=== PATIENT | male | born 1960 | race Two or more races ===

== ENCOUNTER 2018-07-07 23:06 | Emergency (ER) | payer MEDICARE, OTHER ==
[~2018-07-07] VITALS: Ht 170.2 cm; Wt 88.5 kg
[~2018-07-07 23:06] MED LIST: ADCIRCA20 MG ORAL; CELLCEPT250 MG PO; COZAAR25 MG ORAL; COZAAR25 MG PO; NORVASC10 MG PO; PHOSPHA 250 NE250 M1 PO; PROGRAF1 MG ORAL; SIMVASTATIN20 MG PO; ZETIA10 MG PO
[2018-07-07] MEDS ORDERED: PRAVASTATIN SOD20 M1 ORAL (23:34)
[2018-07-07 23:40] VITALS: BP 132/85
--- NOTE | 2018-07-07 23:45 | NUR ---
ED Nurse Note: PT CAME FROM HOME C/O OF CHEST PAIN AND RIGHT ARM TINGLING AND SWELLING SINCE THIS MORNING PT DENIES TRUAMA TO AREA. NO SWELLING OBSERVED
[2018-07-08] LABS: BASOPHILS % (AUTO) 1.1 % (0.0-2.0); EOSINOPHILS % (AUTO) 8.1 % (0.0-3.0); HEMATOCRIT 40.4 % (42.0-52.0); HEMOGLOBIN 13.3 G/DL (14.2-18.0); LYMPHOCYTES % (AUTO) 33.1 % (20.0-45.0); MEAN CORPUSCULAR VOLUME 83 FL (80-99); MONOCYTES % (AUTO) 9.9 % (1.0-10.0); NEUTROPHILS % (AUTO) 47.8 % (45.0-75.0); PLATELET COUNT 112 K/UL (150-450); RED BLOOD COUNT 4.88 M/UL (4.70-6.10); WHITE BLOOD COUNT 5.3 K/UL (4.8-10.8)
[2018-07-08 00:05] LABS: ANION GAP 13 mmol/L (5-15); BLOOD UREA NITROGEN 16 mg/dL (7-18); CALCIUM 8.6 MG/DL (8.5-10.1); CARBON DIOXIDE 22 MMOL/L (21-32); CHLORIDE 104 MMOL/L (98-107); CREATININE 1.6 MG/DL (0.55-1.30); POTASSIUM 3.6 MMOL/L (3.5-5.1); SODIUM 139 MMOL/L (136-145)
[2018-07-08 00:21] LABS: ALANINE AMINOTRANSFERASE 42 U/L (12-78); ALBUMIN 3.6 G/DL (3.4-5.0); ALBUMIN/GLOBULIN RATIO 0.8 (1.0-2.7); ALKALINE PHOSPHATASE 230 U/L (46-116); ASPARTATE AMINO TRANSFERASE 25 U/L (15-37); BILIRUBIN,TOTAL 0.5 MG/DL (0.2-1.0); CKMB 0.8 NG/ML (0.0-3.6); CREATINE KINASE 163 U/L (26-308)
[2018-07-08 00:21] LABS: APPEARANCE,URINE CLEAR; BILIRUBIN, URINE NEGATIVE (NEGATIVE); COLOR,URINE PALE YELLOW; GLUCOSE, URINE (UA) NEGATIVE (NEGATIVE); KETONES,URINE NEGATIVE (NEGATIVE); LEUKOCYTE ESTERASE ,URINE 2+ (NEGATIVE); NITRITE,URINE NEGATIVE (NEGATIVE); PH,URINE 6.5 (4.5-8.0); PROTEIN,URINE 2+ (NEGATIVE); UROBILINOGEN,URINE NORMAL MG/DL (0.0-1.0)
[2018-07-08 01:12] VITALS: BP 122/77
[2018-07-08 01:36] VITALS: BP 119/75
--- NOTE | 2018-07-08 01:36 | NUR ---
ER DISCHARGE NOTE: Patient is cleared to be discharged per ERMD, pt is aox4, on room air, with stable vital signs. pt was given dc instructions, pt was able to verbalize understanding, pt id band and iv site removed without complications. pt is able to ambulate with steady gait. pt took all belongings.
--- NOTE | 2018-07-08 03:12 | Emergency Room Report ---
History of Present Illness General Chief Complaint: Chest Pain Source: Patient, Family Member Present Illness HPI 57-year-old male presents ED for evaluation. Patient on in by daughter. States he is feeling numbness and tingling in his right arm 1 day. Denies any slurred speech or facial droop. States that he felt some tingling sensation in his chest since the afternoon. Denies any symptoms at this time. States he was told that he may have some pinched nerve in his neck which caused tingling in his arm in the past. History of liver and kidney transplant. No other aggravating relieving factors. Denies any other associated symptoms Allergies: Uncoded Allergies: NO KNOWN ALLERGY (Allergy, Unknown, 01/13/12) Patient History Past Medical History: other - pulmonary hypertension Past Surgical History: none, other - liver and kidney transplant Pertinent Family History: none Social History: Denies: smoking, alcohol use, drug use Immunizations: UTD Reviewed Nursing Documentation: PMH: Agreed; PSxH: Agreed Nursing Documentation-PMH Past Medical History: No History, Except For Hx Cardiac Problems: Yes - KIDNEY AND LIVER TRANSPLANT Hx Hypertension: Yes - [id number] HTN Hx Cancer: No Hx Gastrointestinal Problems: No Hx Neurological Problems: No Review of Systems All Other Systems: negative except mentioned in HPI Physical Exam Vital Signs Date Time Temp Pulse Resp B/P (MAP) Pulse Ox O2 Delivery O2 Flow Rate FiO2 07/07/18 23:17 98.1 60 14 132/85 97 Room Air Sp02 EP Interpretation: reviewed, normal General Appearance: no apparent distress, alert, GCS 15, non-toxic Head: normocephalic, atraumatic Eyes: bilateral eye normal inspection, bilateral eye PERRL ENT: hearing grossly normal, normal pharynx, no angioedema, normal voice Neck: full range of motion, supple/symm/no masses Respiratory: chest non-tender, lungs clear, normal breath sounds, speaking full sentences Cardiovascular #1: regular rate, rhythm, no edema Cardiovascular #2: 2+ carotid (R), 2+ carotid (L), 2+ radial (R), 2+ radial (L) , 2+ dorsalis pedis (R), 2+ dorsalis pedis (L) Gastrointestinal: normal bowel sounds, non tender, soft, non-distended, no guarding, no rebound Rectal: deferred Genitourinary: normal inspection, no CVA tenderness Musculoskeletal: back normal, gait/station normal, normal range of motion, non- tender Neurologic: alert, oriented x3, responsive, legal advisor III-XII nml as tested, motor strength/tone normal, sensory intact, speech normal Psychiatric: judgement/insight normal, memory normal, mood/affect normal, no suicidal/homicidal ideation Reflexes: 3+ bicep (R), 3+ bicep (L), 3+ tricep (R), 3+ tricep (L), 3+ knee (R) , 3+ knee (L) Skin: normal color, no rash, warm/dry, well hydrated Lymphatic: no adenopathy Medical Decision Making Diagnostic Impression: Primary Impression: Nerve pain ER Course Hospital Course 57 yo M presents to ED c/o R arm tingling, chest tightness. Differential diagnoses include: CVA, ACS/VT, radiculopathy Clinical course Patient placed on stretcher. on personnel monitor. After initial history and physical I ordered labs, EKG, chest Xray, CT head, CT Cpsine labs reviewed- no leukocytosis, Hb/Hct stable, Cr 1.6, troponins negative CT Brain - unremarkable Chest x-ray- no acute process EKG - NSR, no acute ischemic changes interpreted by me CT C spine - DJD, no fx Discussed findings with patient and family. Patient has no focal neurological deficits. Cranial nerves II through XII intact. No suspicion of CVA. Troponins negative. EKG unremarkable. Symptomatology likely consistent with cervical radiculopathy Creatinine 1.6. Patient has history of kidney transplant. I discussed these findings with family and patient and they state that is his baseline creatinine for the patient. Safe for discharge or close outpatient follow-up. States that he has a PMD. We paged Dr Heath but patient stated he wants to go home and he will followup next week I. I feel this is a highly complex case requiring extensive working including EKG/Rhythm strip, Xray/CT/US, Blood/urine lab work, repeat exams while in ED, and administration of strong opiates/narcotics for pain control, admission to hospital or close patient follow up. Diagnosis - nerve pain Stable and discharged to home. Followup with PMD. Return to ED if symptoms recur or worsen Labs Test 07/07/18 23:30 07/07/18 23:57 White Blood Count 5.3 K/UL (4.8-10.8) Red Blood Count 4.88 M/UL (4.70-6.10) Hemoglobin 13.3 G/DL (14.2-18.0) Hematocrit 40.4 % (42.0-52.0) Mean Corpuscular Volume 83 FL (80-99) Mean Corpuscular Hemoglobin 27.3 PG (27.0-31.0) Mean Corpuscular Hemoglobin Concent 33.1 G/DL (32.0-36.0) Red Cell Distribution Width 13.0 % (11.6-14.8) Platelet Count 112 K/UL (150-450) Mean Platelet Volume 9.8 FL (6.5-10.1) Neutrophils (%) (Auto) 47.8 % (45.0-75.0) Lymphocytes (%) (Auto) 33.1 % (20.0-45.0) Monocytes (%) (Auto) 9.9 % (1.0-10.0) Eosinophils (%) (Auto) 8.1 % (0.0-3.0) Basophils (%) (Auto) 1.1 % (0.0-2.0) Sodium Level 139 MMOL/L (136-145) Potassium Level 3.6 MMOL/L (3.5-5.1) Chloride Level 104 MMOL/L (98-107) Carbon Dioxide Level 22 MMOL/L (21-32) Anion Gap 13 mmol/L (5-15) Blood Urea Nitrogen 16 mg/dL (7-18) Creatinine 1.6 MG/DL (0.55-1.30) Estimat Glomerular Filtration Rate 44.6 mL/min (>60) Glucose Level 116 MG/DL (74-106) Calcium Level 8.6 MG/DL (8.5-10.1) Total Bilirubin 0.5 MG/DL (0.2-1.0) Aspartate Amino Transf (AST/SGOT) 25 U/L (15-37) Alanine Aminotransferase (ALT/SGPT) 42 U/L (12-78) Alkaline Phosphatase 230 U/L (46-116) Total Creatine Kinase 163 U/L (26-308) Creatine Kinase MB 0.8 NG/ML (0.0-3.6) Creatine Kinase MB Relative Index 0.4 Troponin I 0.009 ng/mL (0.000-0.056) Total Protein 8.2 G/DL (6.4-8.2) Albumin 3.6 G/DL (3.4-5.0) Globulin 4.6 g/dL Albumin/Globulin Ratio 0.8 (1.0-2.7) Urine Color Pale yellow Urine Appearance Clear Urine pH 6.5 (4.5-8.0) Urine Specific [place] 1.010 (1.005-1.035) Urine Protein 2+ (NEGATIVE) Urine Glucose (UA) Negative (NEGATIVE) Urine Ketones Negative (NEGATIVE) Urine Blood 2+ (NEGATIVE) Urine Nitrite Negative (NEGATIVE) Urine Bilirubin Negative (NEGATIVE) Urine Urobilinogen Normal MG/DL (0.0-1.0) Urine Leukocyte Esterase 2+ (NEGATIVE) Urine RBC 0-2 /HPF (0 - 0) Urine WBC 2-4 /HPF (0 - 0) Urine Squamous Epithelial Cells Occasional /LPF Urine Bacteria Occasional /HPF (NONE) EKG Diagnostic Results Rate: normal Rhythm: NSR ST Segments: no acute changes ASA given to the pt in ED: No Rhythm Strip Diag. Results EP Interpretation: yes Rhythm: NSR, no PVC's, no ectopy Chest X-Ray Diagnostic Results Chest X-Ray Diagnostic Results : Chest X-Ray Ordered: Yes # of Views/Limited/Complete: 1 View Indication: Chest Pain EP Interpretation: Yes Interpretation: no consolidation, no effusion, no pneumothorax, no acute cardiopulmonary disease Impression: No acute disease Electronically Signed by: Electronically signed by Olivier Ortega MD CT/MRI/US Diagnostic Results CT/MRI/US Diagnostic Results #1: Imaging Test Ordered: CT head Impression no acute process CT/MRI/US Diagnostic Results #2: Imaging Test Ordered: CT C spine Impression DJD, no fx Last Vital Signs Date Time Temp Pulse Resp B/P (MAP) Pulse Ox O2 Delivery O2 Flow Rate FiO2 07/08/18 01:36 98.2 54 16 119/75 100 Room Air Status: improved Disposition: HOME, SELF-CARE Condition: Stable Referrals: NON PHYSICIAN (PCP) Sherrell Heath MD Patient Instructions: Cervical Radiculopathy, [id number] Olivier Ortega MD Jul 08, 2018 03:12
--- NOTE | 2018-07-09 12:42 | Cardiology Report ---
APPROVED REPORT EKG Measurement Heart [id number] [place] 140P10 [id number] Normal sinus rhythm Left anterior fascicular block Abnormal ECG
== END 2018-07-08 01:36 | disposition home or self-care (01) ==
LOC: EMR 23:55
DX: M79.2 Neuralgia and neuritis, unspecified (principal); R07.89 Other chest pain; R20.2 Paresthesia of skin; I27.20 Pulmonary hypertension, unspecified; Z94.4 Liver transplant status; Z94.0 Kidney transplant status
CPT/HCPCS: 36415; 70450; 71045; 72125; 80053; 81003; 82550; 82553; 84484; 85025; 93005; 99284

== ENCOUNTER 2018-08-08 18:12 | Inpatient (IN) | payer MEDICARE, OTHER ==
[~2018-08-08] VITALS: Ht 172.7 cm; Wt 88.5 kg
[~2018-08-08 18:12] MED LIST changes: +PRAVASTATIN SOD20 M1 ORAL
[2018-08-08 18:56] VITALS: BP 108/69
--- NOTE | 2018-08-08 18:57 | NUR ---
ED Nurse Note:pt. came from home with fever and nausea, hx of liver failure, blood and urine sent to labs, pt. was placed on conveyor monitor, VSS, IV fluids given , EKG done
--- NOTE | 2018-08-08 19:07 | NUR ---
HAND-OFF: Report given to Abeba.
[2018-08-08 19:12] VITALS: BP 123/69
--- NOTE | 2018-08-08 19:14 | NUR ---
ED Nurse Note: Patient resting comfortably with no complaints of pain. Patients daughter is at bedside. Belongings sheet completed. Patient's daughter agreed to take patient's wallet home.
[2018-08-08 19:15] LABS: HEMATOCRIT 41.3 % (42.0-52.0); HEMOGLOBIN 13.8 G/DL (14.2-18.0); MEAN CORPUSCULAR VOLUME 81 FL (80-99); PLATELET COUNT 90 K/UL (150-450); RED BLOOD COUNT 5.11 M/UL (4.70-6.10); RED CELL DISTRIBUTION WIDTH 12.4 % (11.6-14.8); WHITE BLOOD COUNT 9.7 K/UL (4.8-10.8)
[2018-08-08 19:16] LABS: APPEARANCE,URINE CLEAR; BILIRUBIN, URINE NEGATIVE (NEGATIVE); GLUCOSE, URINE (UA) NEGATIVE (NEGATIVE); KETONES,URINE NEGATIVE (NEGATIVE); LEUKOCYTE ESTERASE ,URINE 2+ (NEGATIVE); NITRITE,URINE NEGATIVE (NEGATIVE); PH,URINE 5 (4.5-8.0); PROTEIN,URINE 2+ (NEGATIVE); UROBILINOGEN,URINE NORMAL MG/DL (0.0-1.0)
[2018-08-08 19:18] LABS: ANION GAP 13 mmol/L (5-15); BLOOD UREA NITROGEN 21 mg/dL (7-18); CALCIUM 9.1 MG/DL (8.5-10.1); CARBON DIOXIDE 18 MMOL/L (21-32); CHLORIDE 99 MMOL/L (98-107); CREATININE 1.8 MG/DL (0.55-1.30); POTASSIUM 4.4 MMOL/L (3.5-5.1); SODIUM 130 MMOL/L (136-145)
[2018-08-08 19:20] LABS: COLOR,URINE YELLOW
[2018-08-08 19:31] LABS: ALANINE AMINOTRANSFERASE 66 U/L (12-78); ALBUMIN 3.7 G/DL (3.4-5.0); ALBUMIN/GLOBULIN RATIO 0.7 (1.0-2.7); ALKALINE PHOSPHATASE 237 U/L (46-116); ASPARTATE AMINO TRANSFERASE 45 U/L (15-37); BILIRUBIN,TOTAL 1.3 MG/DL (0.2-1.0); CKMB < 0.5 NG/ML (0.0-3.6); CREATINE KINASE 129 U/L (26-308)
[2018-08-08 19:33] LABS: BILIRUBIN,DIRECT 0.3 MG/DL (0.0-0.3)
[2018-08-08] MEDS ORDERED: cefTRIAXone 1 GM in NS 55 ML IVPB ONE (20:00)
--- NOTE | 2018-08-08 20:06 | Emergency Room Report ---
History of Present Illness General Chief Complaint: Fever Source: Patient, Family Member Present Illness HPI 57-year-old male presents ED for evaluation. Brought in by daughter complaining of fever and weakness. Symptoms started this morning. Febrile in triage. Denies cough or sore throat. Denies abdominal pain. Notes nausea and vomiting. States he has history of kidney transplant and liver transplant done many years ago at [facility]. Denies chest pain or shortness of breath. No other aggravating relieving factors. Denies any other associated symptoms Allergies: Uncoded Allergies: NO KNOWN ALLERGY (Allergy, Unknown, 01/13/12) Patient History Past Medical History: other - pulmonary hypertension Past Surgical History: other - kidney and liver transplant Pertinent Family History: none Social History: Denies: smoking, alcohol use, drug use Immunizations: UTD Reviewed Nursing Documentation: PMH: Agreed; PSxH: Agreed Nursing Documentation-PMH Past Medical History: No History, Except For Hx Cardiac Problems: Yes - KIDNEY AND LIVER TRANSPLANT Hx Hypertension: Yes - [id number] HTN Hx Cancer: No Hx Gastrointestinal Problems: No Hx Neurological Problems: No Review of Systems All Other Systems: negative except mentioned in HPI Physical Exam Vital Signs Date Time Temp Pulse Resp B/P (MAP) Pulse Ox O2 Delivery O2 Flow Rate FiO2 08/08/18 18:15 102.0 138 20 130/67 93 Room Air Sp02 EP Interpretation: reviewed, normal General Appearance: no apparent distress, alert, GCS 15, non-toxic Head: normocephalic, atraumatic Eyes: bilateral eye normal inspection, bilateral eye PERRL ENT: hearing grossly normal, normal pharynx, no angioedema, normal voice Neck: full range of motion, supple/symm/no masses Respiratory: chest non-tender, lungs clear, normal breath sounds, speaking full sentences Cardiovascular #1: no edema, tachycardia Cardiovascular #2: 2+ carotid (R), 2+ carotid (L), 2+ radial (R), 2+ radial (L) , 2+ dorsalis pedis (R), 2+ dorsalis pedis (L) Gastrointestinal: normal bowel sounds, non tender, soft, non-distended, no guarding, no rebound Rectal: deferred Genitourinary: normal inspection, no CVA tenderness Musculoskeletal: back normal, gait/station normal, normal range of motion, non- tender Neurologic: alert, oriented x3, responsive, motor strength/tone normal, sensory intact, speech normal Psychiatric: judgement/insight normal, memory normal, mood/affect normal, no suicidal/homicidal ideation Reflexes: 3+ bicep (R), 3+ bicep (L), 3+ tricep (R), 3+ tricep (L), 3+ knee (R) , 3+ knee (L) Skin: normal color, no rash, warm/dry, well hydrated Lymphatic: no adenopathy Medical Decision Making Diagnostic Impression: Primary Impression: Renal failure (ARF), acute on chronic Qualified Codes: N17.9 - Acute kidney failure, unspecified; N18.9 - Chronic kidney disease, unspecified Additional Impressions: UTI (urinary tract infection) Qualified Codes: N39.0 - Urinary tract infection, site not specified Sepsis Qualified Codes: A41.9 - Sepsis, unspecified organism ER Course Hospital Course 57-year-old male presenting to ED with generalized weakness, fever Differential diagnoses include: Pneumonia, UTI, sepsis, dehydration, TX/ unstable angina Clinical course Patient placed on stretcher. On personnel monitor with tachycardia. After initial history and physical, I ordered labs, IV fluids, EKG, chest x-ray, blood cultures, UA. motrin given Labs - no leukocytosis, Na 130, Cr 1.8, lactic elevated, UA + bacteria EKG - sinus tachycardia, no acute ischeic changes interpreted by me CXR - no acute process Discussed with patient and family. Baseline creatinine for patient is 1.6. There is concern for kidney rejection. Discussed case with transplant team at [facility]. They agreed that patient can be admitted here for antibiotics and IV hydration and serial lab work. If creatinine continues to rise they will accept patient for transfer Abx given. IVFs given. Case discussed with Dr Heath and they agreed to admit patient to their service for further care and support I feel this is a highly complex case requiring extensive working including EKG/ Rhythm strip, Xray/CT/US, Blood/urine lab work, repeat exams while in ED, and administration of strong opiates/narcotics for pain control, admission to hospital or close patient follow up. Diagnosis - UTI, sepsis, renal failure acute on chronic Patient admitted to floor in serious condition Labs Test 08/08/18 18:30 08/08/18 18:50 White Blood Count 9.7 K/UL (4.8-10.8) Red Blood Count 5.11 M/UL (4.70-6.10) Hemoglobin 13.8 G/DL (14.2-18.0) Hematocrit 41.3 % (42.0-52.0) Mean Corpuscular Volume 81 FL (80-99) Mean Corpuscular Hemoglobin 27.0 PG (27.0-31.0) Mean Corpuscular Hemoglobin Concent 33.4 G/DL (32.0-36.0) Red Cell Distribution Width 12.4 % (11.6-14.8) Platelet Count 90 K/UL (150-450) Mean Platelet Volume 8.8 FL (6.5-10.1) Neutrophils (%) (Auto) % (45.0-75.0) Lymphocytes (%) (Auto) % (20.0-45.0) Monocytes (%) (Auto) % (1.0-10.0) Eosinophils (%) (Auto) % (0.0-3.0) Basophils (%) (Auto) % (0.0-2.0) Sodium Level 130 MMOL/L (136-145) Potassium Level 4.4 MMOL/L (3.5-5.1) Chloride Level 99 MMOL/L (98-107) Carbon Dioxide Level 18 MMOL/L (21-32) Anion Gap 13 mmol/L (5-15) Blood Urea Nitrogen 21 mg/dL (7-18) Creatinine 1.8 MG/DL (0.55-1.30) Estimat Glomerular Filtration Rate 38.9 mL/min (>60) Glucose Level 143 MG/DL (74-106) Lactic Acid Level 2.40 mmol/L (0.4-2.0) Calcium Level 9.1 MG/DL (8.5-10.1) Total Bilirubin 1.3 MG/DL (0.2-1.0) Direct Bilirubin 0.3 MG/DL (0.0-0.3) Aspartate Amino Transf (AST/SGOT) 45 U/L (15-37) Alanine Aminotransferase (ALT/SGPT) 66 U/L (12-78) Alkaline Phosphatase 237 U/L (46-116) Total Creatine Kinase 129 U/L (26-308) Creatine Kinase MB < 0.5 NG/ML (0.0-3.6) Creatine Kinase MB Relative Index 0.3 Troponin I 0.000 ng/mL (0.000-0.056) Total Protein 8.7 G/DL (6.4-8.2) Albumin 3.7 G/DL (3.4-5.0) Globulin 5.0 g/dL Albumin/Globulin Ratio 0.7 (1.0-2.7) Urine Color Yellow Urine Appearance Clear Urine pH 5 (4.5-8.0) Urine Specific [place] 1.010 (1.005-1.035) Urine Protein 2+ (NEGATIVE) Urine Glucose (UA) Negative (NEGATIVE) Urine Ketones Negative (NEGATIVE) Urine Blood 3+ (NEGATIVE) Urine Nitrite Negative (NEGATIVE) Urine Bilirubin Negative (NEGATIVE) Urine Urobilinogen Normal MG/DL (0.0-1.0) Urine Leukocyte Esterase 2+ (NEGATIVE) Urine RBC 5-10 /HPF (0 - 0) Urine WBC 5-10 /HPF (0 - 0) Urine Squamous Epithelial Cells Few /LPF (NONE/OCC) Urine Amorphous Sediment Few /LPF (NONE) Urine Bacteria Moderate /HPF (NONE) EKG Diagnostic Results Rate: tachycardiac Rhythm: NSR ST Segments: no acute changes ASA given to the pt in ED: No Rhythm Strip Diag. Results EP Interpretation: yes Rhythm: NSR, no PVC's, no ectopy Chest X-Ray Diagnostic Results Chest X-Ray Diagnostic Results : Chest X-Ray Ordered: Yes # of Views/Limited/Complete: 1 View Indication: Other EP Interpretation: Yes Interpretation: no consolidation, no effusion, no pneumothorax, no acute cardiopulmonary disease Impression: No acute disease Electronically Signed by: Electronically signed by Olivier Ortega MD Last Vital Signs Date Time Temp Pulse Resp B/P (MAP) Pulse Ox O2 Delivery O2 Flow Rate FiO2 08/08/18 19:29 103.0 08/08/18 19:12 100 18 123/69 96 Room Air Status: improved Disposition: ADMITTED INPATIENT Condition: Serious Referrals: Sherrell Heath MD (PCP) Olivier Ortega MD August 08, 2018 20:06
[2018-08-08 20:24] VITALS: BP 111/66
--- NOTE | 2018-08-08 21:08 | NUR ---
ED Nurse Note: Patient cleared for transport to medr floor. Lexa accompanied by Govind. Report given to [address]. Lexa in stable condition, fever broken. Family will meet patient upstairs.
--- NOTE | 2018-08-08 21:08 | NUR ---
NURSE NOTES: Received pt from E[place]D. via [place], pt ambulated from gurney to bed without difficulty, gait steady. Pt is AOX4, denies pain, no distress noted. IV R hand patent and intact. NS IV fluid infusing from E.D. Will admit pt to floor. Family at bedside. Will continue to monitor.
[2018-08-08 21:10] VITALS: BP 117/70
--- NOTE | 2018-08-08 21:30 | NUR ---
NURSE NOTES: Dr Heath called admission orders given, will carry out orders.
--- NOTE | 2018-08-08 22:00 | NUR ---
NURSE NOTES: Instructed pt to have somebody bring his own medication (Adcirca) from home. Pharmacy doesn't carry this medication. Pt verbalize understanding.
--- NOTE | 2018-08-08 22:15 | NUR ---
NURSE NOTES: Dr. Heath came to see pt. Informed MD pt's platelets 90 and latest temp 99.0. MD did not want to discontinue heparin.
[2018-08-08] MEDS: Losartan 25mg tab ORAL SCH (23:31)
[2018-08-08] MEDS: Acetaminophen 500mg (ES) tab ORAL PRN (23:45)
[2018-08-09] VITALS: BP 129/58
[2018-08-09 04:00] VITALS: BP 123/61
[2018-08-09] MEDS ORDERED: Piperacillin/Tazobactam 3.375 GM in NS 110 ML IVPB SCH (06:00)
--- NOTE | 2018-08-09 06:45 | History and Physical Report ---
DATE OF ADMISSION: 08/08/2018 REASON FOR ADMISSION: This is one of several admissions to [facility] of this 57-year-old patient because of sepsis. HISTORY OF PRESENT ILLNESS: The patient is a resident of [place] and had been in stable condition for the last several years. He is known to have several chronic medical syndrome that will be detailed in the following. The patient has been stable on his current medication. One day prior to the present admission, he developed fever, tachycardia, and upper extremity tremor and severe weakness. He was brought by his daughter to [facility], where he was found to have fever, tachycardia, normal WBC, and pyuria, and the patient was admitted. PAST MEDICAL HISTORY: More than 10 years ago, the patient underwent liver and skin transplant at [facility], so surgery took place after the patient was admitted to [facility] for upper gastrointestinal bleed and thrombocytopenia. Over the last 10 years, his surgery was very successful. His immunosuppression medications are well tolerated. No side effects. He regained complete recovery of his energy and his function. He has been followed at [facility] by a neuro specialist and plastic boat buffer and followed by ar as well. ALLERGIES: No known drug allergies. MEDICATIONS: The patient is on ezetimibe 10 mg daily, pravastatin 40 mg daily, pantoprazole 40 mg daily, amlodipine 10 mg daily, and mycophenolate 500 mg b.i.d. He is on phosphorus 500 mg b.i.d. Tacrolimus or Prograf 1 mg in a.m. He is on tadalafil 20 mg t.i.d. for pulmonary hypertension. He taking tacrolimus 0.5 mg q.12 h. In addition, the patient is on losartan 25 mg at bedtime. Sodium chloride 1 gram, a bit. FAMILY HISTORY: Both parents are alive and in good health. He has one sister in good health. He has one daughter, who is in the last year of medical school at [employer]. SOCIAL HISTORY: He is . He is going tomorrow, lived in [place] for more than 20 years, prior to the appearance of this . HABITS: The patient does not smoke, drink, or use illicit drugs. REVIEW OF SYSTEMS: CARDIOVASCULAR: The patient denied any chest pain, shortness of breath, palpitations, or dizziness. PULMONARY: The patient denied any cough, wheezing, or expectoration. GASTROINTESTINAL: His appetite is moderate. His weight is stable. He has no dysphagia or dyspepsia. No bowel movement disorder. GENITOURINARY: The patient denied any dysuria, frequency, or incontinence. Nocturia is 1 to 2. The patient denies dysuria in the last 24 hours. CENTRAL NERVOUS SYSTEM: His sleep is of good quality. He has no numbness, tingling, or seizure disorder and he has no headache. PHYSICAL EXAMINATION: VITAL SIGNS: Blood pressure is 121/71, his pulse is 91, respirations are 22, and temperature is 98.6 degrees, it was 103 degrees two hours ago. HEENT: Eyes were normal. Pupils were round, equal, and reactive to light. Sclerae were white. Conjunctivae were pink. Extraocular movements were normal. Temporal arteries were palpable bilaterally. There was no bilateral temporal wasting. Visual perez to confrontation were normal. Neglect sign was negative. ENT, mucous membranes were not dehydrated. Auditory canals were clear and tympanic membranes could not be visualized. Nasal cavity was not congested. Nasal septum was intact. Soft palate was free of ulcerations. Pharynx was clear from exudate or tonsillar hypertrophy. Uvula jing to phonation. Tongue was moist, midline, and normally papillated. NECK: Supple. There was no goiter. No mass. No lymphadenopathy. There was no JVD. No bruits. Carotid upstroke was 2+. LUNGS: Clear. HEART: PMI was in the fourth left intercostal space in midclavicular line. There was normal S1 and normal S2. There was no murmur. No arrhythmia. No S3. No S4. No pericardial rub. ABDOMEN: Soft and nontender without organomegaly. There were no masses palpable. Normal bowel sounds without bruits. There was no guarding. No rebound tenderness. No ascites. No hernia. No CVA tenderness. Liver span was 8 cm, smooth, and nontender. There was some left CVA tenderness and slightly dull to palpation. NEUROLOGICAL: Reflexes in biceps, triceps, and brachioradialis were symmetric and equal. Patellar retinaculum was symmetric and equal. Plantars were in flexion. Cranial nerves from II through XII were symmetric and equal. Cerebellar function, there was no tremor. No nystagmus. No extrapyramidal rigidity. Sensory exam to pinprick, cotton touch, and position are grossly normal. Motor strength was 5/5 against resistance in upper and lower extremities in proximal and distal muscles. LABORATORY DATA: Hemoglobin 7.8 and hematocrit 31.3 with MCV of 61, WBC of 9.7, and platelets 190,000. His BUN and creatinine are 21 and 1.0 respectively. His sodium is 130, potassium 4.4, chloride 99, and CO2 is 18, and calcium is 9.1. Total bili is 1.3. IMPRESSION: The patient has sepsis associated with cystitis. However, creatinine has increased from 1.6 to 1.8 without significant increase in BUN, which led to suspicion that the patient . [facility] was contacted and they suggested to treat the patient for the next 24 hours and to communicate again once his advanced renal function are available. Repeat laboratory tests will be done in the a.m. Nephrology sap plant maintenance consultant was called to assist in the management of this case. Sherrell Heath M.D. DR: KIMBERLEE JOB#: [id number] CC:
--- NOTE | 2018-08-09 06:50 | NUR ---
NURSE NOTES: Paged Dr. Heath regarding Heparin 5,000 units sub cut q 12 hours, Platelet count 90. Pharmacy wants parameters for heparin due to platelet is low. Awaiting for call back.
[2018-08-09 06:54] LABS: HEMATOCRIT 35.5 % (42.0-52.0); HEMOGLOBIN 11.8 G/DL (14.2-18.0); MEAN CORPUSCULAR VOLUME 83 FL (80-99); PLATELET COUNT 72 K/UL (150-450); RED CELL DISTRIBUTION WIDTH 12.8 % (11.6-14.8); WHITE BLOOD COUNT 9.8 K/UL (4.8-10.8)
--- NOTE | 2018-08-09 07:00 | NUR ---
NURSE NOTES: Dr. Heath called back and discontinue heparin medication.
--- NOTE | 2018-08-09 07:30 | NUR ---
NURSE NOTES: Patient is in bed asleep but arousable to verbal stimuli. Patient is stable. No facial grimacing or moaning noted. All safety measures provided. Patient is in bed in locked and lowest position with call light within reach. Will continue to monitor.
--- NOTE | 2018-08-09 07:30 | NUR ---
HAND-OFF: Report given to DOMINGO Mccarthy. Pt in stable condition.
[2018-08-09 07:59] LABS: ALANINE AMINOTRANSFERASE 64 U/L (12-78); ALBUMIN 2.8 G/DL (3.4-5.0); ALKALINE PHOSPHATASE 177 U/L (46-116); ANION GAP 13 mmol/L (5-15); ASPARTATE AMINO TRANSFERASE 38 U/L (15-37); BILIRUBIN,DIRECT 0.2 MG/DL (0.0-0.3); BILIRUBIN,TOTAL 0.8 MG/DL (0.2-1.0); BLOOD UREA NITROGEN 22 mg/dL (7-18); CALCIUM 8.1 MG/DL (8.5-10.1); CARBON DIOXIDE 18 MMOL/L (21-32); CHLORIDE 107 MMOL/L (98-107); CREATININE 1.8 MG/DL (0.55-1.30); LACTATE DEHYDROGENASE 120 U/L (81-234); POTASSIUM 4.4 MMOL/L (3.5-5.1); SODIUM 138 MMOL/L (136-145)
[2018-08-09 08:00] VITALS: BP 126/65
[2018-08-09] MEDS ORDERED: Heparin 5000 units/ml inj SUBQ SCH (09:00)
--- NOTE | 2018-08-09 09:00 | NUR ---
NURSE NOTES: Received new orders from Dr. Heath regarding blood specimen results. Orders noted and carried out.
[2018-08-09] MEDS: Pantoprazole Inj IVP SCH (09:14)
[2018-08-09] MEDS: Mycophenolate 250mg cap ORAL SCH ×2 (09:14→18:14)
[2018-08-09] MEDS: Phospha 250 Neutral tab ORAL SCH ×2 (09:14→18:14)
--- NOTE | 2018-08-09 09:57 | Diagnostic Imaging Report ---
Indication:Abdominal pain Technique: Grayscale and duplex Doppler imaging of the abdomen performed. Comparison: None Findings: The [place] kidneys are not seen. 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 The transplanted kidney is unremarkable as visualized. There is no hydronephrosis. The bladder is unremarkable. Low resistance waveform demonstrated. Resistive indices range from 0.75-0.79. There is a small cyst in the kidney. There is no ascites. The liver is unremarkable. CBD is 6 mm. Gallbladder is not seen. The pancreas and aorta are poorly seen. The main portal vein is patent by Doppler examination. Spleen measures about 12.5 cm x 10.6 cm. IMPRESSION: Transplant kidney in the left iliac fossa. Small cyst noted. Splenomegaly. Pancreas and aorta not seen due to bowel gas. Status post cholecystectomy
--- NOTE | 2018-08-09 10:52 | Diagnostic Imaging Report ---
Indication: Dyspnea Comparison: 07/07/2018 A single view chest radiograph was obtained. Findings: Cardiomediastinal appearance is within normal limits for age. The lungs are clear. Pulmonary vascularity is appropriate. The diaphragmatic contour is smooth and costophrenic angles are sharp. No pleural effusions are identified. The bones are unremarkable. Impression: No acute findings
--- NOTE | 2018-08-09 11:17 | NUR ---
CASE MANAGEMENT:REVIEW 57 YR OLD MALE FROM HOME TO ER CC: FEVER. VOMITING IN ER SI: SEPSIS. UTI. AC/CHR RENAL 102.1 138 20 130/67 93% ON RA PLT-90 NA-130 BUN+21 CR+1.8 IS: 1L NS BOLUS IV ROCEPHIN IBUPROFEN PO CHEST XRAY BLOOD CX URINE CX : TO MED/SURG 3 EAST DCP: FROM HOME
[2018-08-09 12:00] VITALS: BP 130/74
[2018-08-09] MEDS: Meropenem 1 GM in NS 55 ML IVPB SCH ×2 (12:12→21:16)
[2018-08-09 12:34] LABS: APPEARANCE,URINE CLEAR; BILIRUBIN, URINE NEGATIVE (NEGATIVE); COLOR,URINE PALE YELLOW; GLUCOSE, URINE (UA) NEGATIVE (NEGATIVE); KETONES,URINE NEGATIVE (NEGATIVE); LEUKOCYTE ESTERASE ,URINE 1+ (NEGATIVE); NITRITE,URINE NEGATIVE (NEGATIVE); PH,URINE 6 (4.5-8.0); PROTEIN,URINE NEGATIVE (NEGATIVE); UROBILINOGEN,URINE NORMAL MG/DL (0.0-1.0)
[2018-08-09] MEDS ORDERED: Meropenem 1 GM in NS 55 ML IVPB SCH (14:00)
--- NOTE | 2018-08-09 14:26 | Consultation ---
History of Present Illness General Chief Complaint: Fever Present Illness Allergies: Coded Allergies: No Known Allergies (Unverified , 08/09/18) Medication History Scheduled Amlodipine Besylate (Norvasc), 10 MG PO DAILY, (Reported) Ezetimibe (Zetia*), 10 MG PO QHS, (Reported) Losartan Potassium* (Cozaar*), 25 MG ORAL BEDTIME, (Reported) Mycophenolate Mofetil (Cellcept), 500 MG PO BID, (Reported) Phosphorus (Phospha 250 Neutral Tablet), 500 MG PO BID, (Reported) Pravastatin Sod* (Pravastatin Sod*), 20 MG ORAL BEDTIME, (Reported) Simvastatin (Zocor), 40 MG PO QHS, (Reported) Tacrolimus (Prograf), 1.5 MG ORAL BID, (Reported) Tadalafil (Adcirca), 40 MG ORAL DAILY, (Reported) Patient History Healthcare decision maker Resuscitation status Full Code Advanced Directive on File No Physical Exam Last 24 Hour Vital Signs Date Time Temp Pulse Resp B/P (MAP) Pulse Ox O2 Delivery O2 Flow Rate FiO2 08/09/18 12:00 98.0 68 20 130/74 (92) 97 08/09/18 09:14 70 126/65 08/09/18 09:00 Room Air 08/09/18 08:00 98.0 70 20 126/65 (85) 98 08/09/18 04:00 98.0 71 18 123/61 (81) 97 08/09/18 00:00 99.2 82 18 129/58 (81) 97 08/08/18 23:31 117/70 08/08/18 21:24 Room Air 08/08/18 21:10 99.0 91 18 117/70 (86) 98 08/08/18 21:10 98.6 91 22 121/71 99 Room Air 08/08/18 20:24 98.6 91 26 111/66 99 Room Air 08/08/18 19:29 103.0 08/08/18 19:12 103.0 100 18 123/69 96 Room Air 08/08/18 18:56 102.0 107 20 108/69 93 Room Air 08/08/18 18:51 107 20 Room Air 08/08/18 18:15 102.0 138 20 130/67 93 Room Air Intake and Output 08/08/18 08/09/18 18:59 06:59 Intake Total 827.5 ml Output Total 400 ml Balance 427.5 ml Intake Oral 100 ml IV Total 727.5 ml Output Urine Total 400 ml # Voids 1 Laboratory Tests Test 08/08/18 18:30 08/08/18 18:50 08/08/18 20:30 08/09/18 05:50 White Blood Count 9.7 K/UL (4.8-10.8) 9.8 K/UL (4.8-10.8) Red Blood Count 5.11 M/UL (4.70-6.10) 4.30 M/UL (4.70-6.10) L Hemoglobin 13.8 G/DL (14.2-18.0) L 11.8 G/DL (14.2-18.0) L Hematocrit 41.3 % (42.0-52.0) L 35.5 % (42.0-52.0) L Mean Corpuscular Volume 81 FL (80-99) 83 FL (80-99) Mean Corpuscular Hemoglobin 27.0 PG (27.0-31.0) 27.4 PG (27.0-31.0) Mean Corpuscular Hemoglobin Concent 33.4 G/DL (32.0-36.0) 33.2 G/DL (32.0-36.0) Red Cell Distribution Width 12.4 % (11.6-14.8) 12.8 % (11.6-14.8) Platelet Count 90 K/UL (150-450) L 72 K/UL (150-450) L Mean Platelet Volume 8.8 FL (6.5-10.1) 9.5 FL (6.5-10.1) Neutrophils (%) (Auto) % (45.0-75.0) % (45.0-75.0) Lymphocytes (%) (Auto) % (20.0-45.0) % (20.0-45.0) Monocytes (%) (Auto) % (1.0-10.0) % (1.0-10.0) Eosinophils (%) (Auto) % (0.0-3.0) % (0.0-3.0) Basophils (%) (Auto) % (0.0-2.0) % (0.0-2.0) Differential Total Cells Counted 100 100 Neutrophils % (Manual) 86 % (45-75) H 68 % (45-75) Lymphocytes % (Manual) 9 % (20-45) L 21 % (20-45) Monocytes % (Manual) 1 % (1-10) 9 % (1-10) Eosinophils % (Manual) 0 % (0-3) 0 % (0-3) Basophils % (Manual) 0 % (0-2) 0 % (0-2) Band Neutrophils 4 % (0-8) 2 % (0-8) Platelet Estimate Decreased L Decreased L Platelet Morphology Normal Normal Red Blood Cell Morphology Normal Normal Sodium Level 130 MMOL/L (136-145) L 138 MMOL/L (136-145) Potassium Level 4.4 MMOL/L (3.5-5.1) 4.4 MMOL/L (3.5-5.1) Chloride Level 99 MMOL/L (98-107) 107 MMOL/L (98-107) Carbon Dioxide Level 18 MMOL/L (21-32) L 18 MMOL/L (21-32) L Anion Gap 13 mmol/L (5-15) 13 mmol/L (5-15) Blood Urea Nitrogen 21 mg/dL (7-18) H 22 mg/dL (7-18) H Creatinine 1.8 MG/DL (0.55-1.30) H 1.8 MG/DL (0.55-1.30) H Estimat Glomerular Filtration Rate 38.9 mL/min (>60) 38.9 mL/min (>60) Glucose Level 143 MG/DL (74-106) H 102 MG/DL (74-106) Lactic Acid Level 2.40 mmol/L (0.4-2.0) H 1.00 mmol/L (0.66-2.22) Calcium Level 9.1 MG/DL (8.5-10.1) 8.1 MG/DL (8.5-10.1) L Total Bilirubin 1.3 MG/DL (0.2-1.0) H 0.8 MG/DL (0.2-1.0) Direct Bilirubin 0.3 MG/DL (0.0-0.3) 0.2 MG/DL (0.0-0.3) Aspartate Amino Transf (AST/SGOT) 45 U/L (15-37) H 38 U/L (15-37) H Alanine Aminotransferase (ALT/SGPT) 66 U/L (12-78) 64 U/L (12-78) Alkaline Phosphatase 237 U/L (46-116) H 177 U/L (46-116) H Total Creatine Kinase 129 U/L (26-308) Creatine Kinase MB < 0.5 NG/ML (0.0-3.6) Creatine Kinase MB Relative Index 0.3 Troponin I 0.000 ng/mL (0.000-0.056) Total Protein 8.7 G/DL (6.4-8.2) H 7.0 G/DL (6.4-8.2) Albumin 3.7 G/DL (3.4-5.0) 2.8 G/DL (3.4-5.0) L Globulin 5.0 g/dL Albumin/Globulin Ratio 0.7 (1.0-2.7) L Urine Color Yellow Urine Appearance Clear Urine pH 5 (4.5-8.0) Urine Specific [place] 1.010 (1.005-1.035) Urine Protein 2+ (NEGATIVE) H Urine Glucose (UA) Negative (NEGATIVE) Urine Ketones Negative (NEGATIVE) Urine Blood 3+ (NEGATIVE) H Urine Nitrite Negative (NEGATIVE) Urine Bilirubin Negative (NEGATIVE) Urine Urobilinogen Normal MG/DL (0.0-1.0) Urine Leukocyte Esterase 2+ (NEGATIVE) H Urine RBC 5-10 /HPF (0 - 0) H Urine WBC 5-10 /HPF (0 - 0) H Urine Squamous Epithelial Cells Few /LPF (NONE/OCC) Urine Amorphous Sediment Few /LPF (NONE) H Urine Bacteria Moderate /HPF (NONE) H Erythrocyte Sedimentation Rate 43 MM/HR (0-20) H Ammonia 25 umol/L (11-32) Lactate Dehydrogenase 120 U/L (81-234) C-Reactive Protein, Quantitative 13.8 mg/dL (0.00-0.90) H Thyroid Stimulating Hormone (TSH) 1.382 uiU/mL (0.358-3.740) Free Thyroxine 1.11 NG/DL (0.76-1.46) Test 08/09/18 12:00 Urine Color Pale yellow Urine Appearance Clear Urine pH 6 (4.5-8.0) Urine Specific [place] 1.010 (1.005-1.035) Urine Protein Negative (NEGATIVE) Urine Glucose (UA) Negative (NEGATIVE) Urine Ketones Negative (NEGATIVE) Urine Blood 1+ (NEGATIVE) H Urine Nitrite Negative (NEGATIVE) Urine Bilirubin Negative (NEGATIVE) Urine Urobilinogen Normal MG/DL (0.0-1.0) Urine Leukocyte Esterase 1+ (NEGATIVE) H Urine RBC 0-2 /HPF (0 - 0) H Urine WBC 0-2 /HPF (0 - 0) Urine Squamous Epithelial Cells None /LPF (NONE/OCC) Urine Bacteria None /HPF (NONE) Microbiology Date/Time Source Procedure Growth Status 08/08/18 18:40 Blood Blood Culture - Preliminary Gram Negative [place] Resulted 08/08/18 18:30 Blood Blood Culture - Preliminary Gram Negative [place] Resulted 08/08/18 18:50 Urine,Clean Catch Urine Culture - Preliminary NO GROWTH Resulted Height (Feet): 5 Height (Inches): 8.00 Weight (Pounds): 195 Medications Current Medications Medications (Trade) Dose Ordered Sig/Bria Route PRN Reason Start Time Stop Time Status Last Admin Dose Admin Acetaminophen (Tylenol) 500 mg Q6H PRN ORAL Mild Pain/Temp > 100.5 08/08/18 23:30 09/07/18 23:29 08/08/18 23:45 Amlodipine Besylate (Norvasc) 10 mg DAILY ORAL 08/09/18 09:00 09/08/18 08:59 08/09/18 09:14 EZETIMIBE (Zetia) 10 mg BEDTIME ORAL 08/09/18 21:00 09/08/18 20:59 Losartan Potassium (Cozaar) 25 mg QHS ORAL 08/08/18 23:30 09/07/18 23:29 08/08/18 23:31 Meropenem 1 gm/ Sodium Chloride 55 ml @ 110 mls/hr Q8HR IVPB 08/09/18 12:00 08/10/18 15:00 08/09/18 12:12 Mycophenolate Mofetil (Cellcept) 500 mg TWICE A DAY ORAL 08/09/18 09:00 09/08/18 08:59 08/09/18 09:14 Non-Formulary Medication (Non-Formulary Med) 1 ea DAILY ORAL 08/09/18 09:00 09/08/18 08:59 UNV Ondansetron HCl (Zofran) 4 mg Q4H PRN IVP Nausea & Vomiting 08/08/18 22:45 09/07/18 22:44 Pantoprazole (Protonix) 40 mg DAILY IVP 08/09/18 09:00 09/08/18 08:59 08/09/18 09:14 Phosphorus (Phospha 250 Neutral) 500 mg BID ORAL 08/09/18 09:00 09/08/18 08:59 08/09/18 09:14 Pravastatin Sodium (Pravachol) 40 mg BEDTIME ORAL 08/09/18 21:00 09/08/18 20:59 Sodium Chloride 1,000 ml @ 100 mls/hr Q10H IV 08/08/18 22:45 09/07/18 22:44 08/09/18 09:13 Tacrolimus (Prograf) 0.5 mg Q12HR ORAL 08/09/18 09:00 09/08/18 08:59 08/09/18 09:13 Tacrolimus (Prograf) 1 mg EVERY 12 HOURS ORAL 08/09/18 09:00 09/08/18 08:59 08/09/18 09:13 Assessment/Plan Assessment/Plan: Hematology Consultation DOS: 08/09/18 MIKI MD: Sherrell Heath [facility]: Anemia and low platelets Source: Patient, Family Member HPI 57-year-old male presents ED for evaluation. Brought in by daughter complaining of fever and weakness. Symptoms started this morning. Febrile in triage. Denies cough or sore throat. Denies abdominal pain. Notes nausea and vomiting. States he has history of kidney transplant and liver transplant done many years ago at [facility]. Denies chest pain or shortness of breath. No other aggravating relieving factors. Denies any other associated symptoms Allergies: NO KNOWN ALLERGY (Allergy, Unknown, 01/13/12) Past Medical History: other - pulmonary hypertension Past Surgical History: other - kidney and liver transplant Pertinent Family History: none Social History: Denies: smoking, alcohol use, drug use Immunizations: UTD Reviewed Nursing Documentation: PMH: Agreed; PSxH: Agreed Past Medical History: No History, Except For Hx Cardiac Problems: Yes - KIDNEY AND LIVER TRANSPLANT Hx Hypertension: Yes - [id number] HTN Hx Cancer: No Hx Gastrointestinal Problems: No Hx Neurological Problems: No Review of Systems: negative except mentioned in HPI PE Vital Signs Date Time Temp Pulse Resp B/P (MAP) Pulse Ox O2 Delivery O2 Flow Rate FiO2 08/08/18 18:15 102.0 138 20 130/67 93 Room Air Sp02 EP Interpretation: reviewed, normal General Appearance: no apparent distress Head: normocephalic, atraumatic Eyes: bilateral eye normal inspection ENT: hearing grossly normal, normal pharynx Neck: full range of motion, supple/symm/no masses Respiratory: chest non-tender, lungs clear, normal breath sounds Cardiovascular: no edema, tachycardia, 2+ carotid (R), 2+ carotid (L) Gastrointestinal: normal bowel sounds, non tender, soft, non-distended, no guarding, no rebound Genitourinary: normal inspection, no CVA t Musculoskeletal: back normal, gait/station normal, nd Neurologic: alert, oriented x3, responsive Psychiatric: judgement/insight normal, memory june Reflexes: noted allthroughout Skin: normal color, no rash, warm/dry Assessment and Recs: # Thrombocytopenia - potential causes multifactorial, due to cirrhosis and splenomegaly as well, meds reviewed, on antisuppressants, has been admitted before 2012 --> Hep panel and HIV ordered --> US abd to evaluate for cirrhosis and hsm ordered --> Peripheral smear ordered to evaluate for blasts /schistocytes --> abx and other meds have been reviewed --> ok for ppx if plt >50k w/ either heparin or lovenox --> Transfuse if Plt < 20k and fever, or if Plt < 10k without fever # Anemia of chronic disease (or of iron deficiency) due to underlying chronic medical issues, multifactorial --> Anemia workup has been ordered, rule out gi bleed --> No evidence of hemolysis is noted, peripheral smear has been reviewed. --> Hgb goal >7. Transfuse prn. --> Epogen or iron at this time is not particularly indicated --> Medications have been reviewed --> evaluate with Gi team prn --> transfuse if hgb is < 7 (will trend CBC daily) --> low threshold for gi evaluation in case has occult + # History of liver cirrhosis. chronic --> History of renal and liver transplant. --> History of immunosuppressive medications. --> History of splenomegaly. # Hypertension. --> sbp goal is <140 --> as per cards # History of pulmonary hypertension. # Renal failure (ARF), acute on chronic # UTI (urinary tract infection) with sepsis --> s/p abx The timing of this note does not necessarily reflect the time of the patient was seen. Greatly appreciate consultation! Edson Olvera MD August 09, 2018 14:26
[2018-08-09 16:00] VITALS: BP 123/68
[2018-08-09 16:28] LABS: FERRITIN 256 NG/ML (8-388)
[2018-08-09 16:43] LABS: % IRON SATURATION 10 % (15-50); IRON 26 ug/dL (50-175); TOTAL IRON BINDING CAPACITY 250 ug/dL (250-450)
[2018-08-09] MEDS ORDERED: Tubing IV Secondary IV ONE (16:52)
--- NOTE | 2018-08-09 17:43 | Cardiology Report ---
APPROVED REPORT EKG Measurement Heart [id number] [id number] Sinus tachycardia Right bundle branch block Left anterior fascicular block Bifascicular block Abnormal ECG
--- NOTE | 2018-08-09 19:30 | NUR ---
NURSE NOTES: Received report & pt from DOMINGO Mccarthy. Pt lying in bed, a&ox4, Amharic speaking, in room air, family members at bedside. No s/s of acute distress & no c/o pain at this time. Skin intact. IV site intact with IVF running as ordered. Per daughter, family member will bring Adcirca home med tomorrow 08/10/18. Bed in lowest position, call light within reach. Will continue to monitor.
--- NOTE | 2018-08-09 19:30 | NUR ---
HAND-OFF: Report given to Sudha LANE. Patient is stable.
[2018-08-09 20:00] VITALS: BP 134/75
[2018-08-09] MEDS: Losartan 25mg tab ORAL SCH (20:33)
[2018-08-10] VITALS: BP 117/73
[2018-08-10 04:00] VITALS: BP 125/68
[2018-08-10] MEDS: Meropenem 1 GM in NS 55 ML IVPB SCH ×3 (05:17→21:53)
[2018-08-10] MEDS: Acetaminophen 500mg (ES) tab ORAL PRN (07:24)
--- NOTE | 2018-08-10 07:30 | NUR ---
NURSE NOTES: Patient is sitting up in chair awake and able to verbalize needs. Patient is stable. Denies severe pain or SOB at this time. Patient complains of headache, will administer medication as ordered. Patient encouraged to use call light, verbalized understanding. Plan of care discussed with patient. Patient is in good spirits with call light within reach. Will continue to monitor.
--- NOTE | 2018-08-10 07:30 | NUR ---
HAND-OFF: Report given to DOMINGO Mccarthy. Pt in stable condition. Rounds done. Called & left msg to Dr. Heath regarding Prograf. Per pt, he's been taking 1 mg BID ever since. Current order @ 1.5mg. Endorsed to AM shift.
[2018-08-10 08:00] VITALS: BP 137/79
[2018-08-10] MEDS: Mycophenolate 250mg cap ORAL SCH ×2 (09:00→17:54)
[2018-08-10] MEDS: Pantoprazole Inj IVP SCH (09:01)
[2018-08-10] MEDS: Phospha 250 Neutral tab ORAL SCH ×2 (09:01→17:54)
[2018-08-10] MEDS ORDERED: Isovue-300 100ml vial INJ PRN (11:30)
[2018-08-10 12:00] VITALS: BP 131/89
--- NOTE | 2018-08-10 12:07 | Consultation ---
History of Present Illness General Date patient seen: August 10, 2018 Chief Complaint: Fever Present Illness HPI 57 year old male with hx of renal and liver transplant >10 years ago, very well tolerated, presented to ER with CC of fever. Allergies: Coded Allergies: No Known Allergies (Unverified , 08/09/18) Medication History Scheduled Amlodipine Besylate (Norvasc), 10 MG PO DAILY, (Reported) Ezetimibe (Zetia*), 10 MG PO QHS, (Reported) Losartan Potassium* (Cozaar*), 25 MG ORAL BEDTIME, (Reported) Mycophenolate Mofetil (Cellcept), 500 MG PO BID, (Reported) Phosphorus (Phospha 250 Neutral Tablet), 500 MG PO BID, (Reported) Pravastatin Sod* (Pravastatin Sod*), 20 MG ORAL BEDTIME, (Reported) Simvastatin (Zocor), 40 MG PO QHS, (Reported) Tacrolimus (Prograf), 1.5 MG ORAL BID, (Reported) Tadalafil (Adcirca), 40 MG ORAL DAILY, (Reported) Patient History Healthcare decision maker Resuscitation status Full Code Advanced Directive on File No Past Medical/Surgical History Past Medical/Surgical History: (1) History of liver transplant (2) History of renal transplant Review of Systems All Other Systems: negative except mentioned in HPI Physical Exam General Appearance: WD/WN Lines, tubes and drains: peripheral HEENT: normocephalic Neck: non-tender, supple Respiratory/Chest: chest wall non-tender, lungs clear Cardiovascular/Chest: normal peripheral pulses, normal rate Abdomen: normal bowel sounds Genitourinary/Rectal: normal genital exam Skin Exam: normal pigmentation 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 Last 24 Hour Vital Signs Date Time Temp Pulse Resp B/P (MAP) Pulse Ox O2 Delivery O2 Flow Rate FiO2 08/10/18 09:00 Room Air 08/10/18 09:00 67 137/79 08/10/18 08:00 98.6 67 18 137/79 (98) 97 08/10/18 04:00 98.4 69 20 125/68 (87) 95 08/10/18 00:00 98.3 64 18 117/73 (88) 99 08/09/18 21:00 Room Air 08/09/18 20:33 134/75 08/09/18 20:00 98.1 69 18 134/75 (94) 97 08/09/18 16:00 97.7 71 18 123/68 (86) 99 Intake and Output 08/09/18 08/10/18 19:00 07:00 Intake Total 720 ml 1340 ml Output Total 500 ml Balance 720 ml 840 ml Intake Oral 720 ml 240 ml IV Total 1100 ml Output Urine Total 500 ml Laboratory Tests Test 08/09/18 15:13 Prothrombin Time 10.9 SEC (9.30-11.50) Prothromb Time International Ratio 1.0 (0.9-1.1) Iron Level 26 ug/dL (50-175) L Total Iron Binding Capacity 250 ug/dL (250-450) Percent Iron Saturation 10 % (15-50) L Unsaturated Iron Binding 224 ug/dL (112-346) Ferritin 256 NG/ML (8-388) Vitamin B12 Level 573 PG/ML (193-986) Folate 4.8 NG/ML (8.6-58.9) L Hepatitis A IgM Antibody Negative (Negative) Hepatitis B Surface Antigen Negative (Negative) Hepatitis B Core IgM Antibody Negative (Negative) Hepatitis C Antibody <0.1 s/co ratio HIV (1&2) Antibody Rapid Negative (NEGATIVE) Height (Feet): 5 Height (Inches): 8.00 Weight (Pounds): 195 Medications Current Medications Medications (Trade) Dose Ordered Sig/Bria Route PRN Reason Start Time Stop Time Status Last Admin Dose Admin Acetaminophen (Tylenol) 500 mg Q6H PRN ORAL Mild Pain/Temp > 100.5 08/08/18 23:30 09/07/18 23:29 08/10/18 07:24 Amlodipine Besylate (Norvasc) 10 mg DAILY ORAL 08/09/18 09:00 09/08/18 08:59 08/10/18 09:00 Barium Sulfate (Readi-Cat 2) 450 ml NOW PRN ORAL Radiology Procedure 08/10/18 11:30 08/12/18 11:29 EZETIMIBE (Zetia) 10 mg BEDTIME ORAL 08/09/18 21:00 09/08/18 20:59 08/09/18 20:33 Iopamidol (Isovue-300 100ml) 100 ml NOW PRN INJ Radiology Procedure 08/10/18 11:30 08/11/18 11:29 Losartan Potassium (Cozaar) 25 mg QHS ORAL 08/08/18 23:30 09/07/18 23:29 08/09/18 20:33 Meropenem 1 gm/ Sodium Chloride 55 ml @ 110 mls/hr Q8HR IVPB 08/09/18 12:00 08/10/18 15:00 08/10/18 05:17 Mycophenolate Mofetil (Cellcept) 500 mg TWICE A DAY ORAL 08/09/18 09:00 09/08/18 08:59 08/10/18 09:00 Non-Formulary Medication (Non-Formulary Med) 1 ea DAILY ORAL 08/09/18 09:00 09/08/18 08:59 UNV Ondansetron HCl (Zofran) 4 mg Q4H PRN IVP Nausea & Vomiting 08/08/18 22:45 09/07/18 22:44 Pantoprazole (Protonix) 40 mg DAILY IVP 08/09/18 09:00 09/08/18 08:59 08/10/18 09:01 Phosphorus (Phospha 250 Neutral) 500 mg BID ORAL 08/09/18 09:00 09/08/18 08:59 08/10/18 09:01 Pravastatin Sodium (Pravachol) 40 mg BEDTIME ORAL 08/09/18 21:00 09/08/18 20:59 08/09/18 20:33 Sodium Chloride 1,000 ml @ 100 mls/hr Q10H IV 08/08/18 22:45 09/07/18 22:44 08/10/18 11:40 Tacrolimus (Prograf) 1 mg EVERY 12 HOURS ORAL 08/09/18 09:00 09/08/18 08:59 08/10/18 09:00 Assessment/Plan Problem List: (1) Sepsis ICD Codes: A41.9 - Sepsis, unspecified organism SNOMED: 61997163 Qualifiers: Qualified Codes: A41.9 - Sepsis, unspecified organism (2) Gram-negative bacteremia ICD Codes: R78.81 - Bacteremia SNOMED: 370016138379 (3) Renal failure (ARF), acute on chronic ICD Codes: N17.9 - Acute kidney failure, unspecified; N18.9 - Chronic kidney disease, unspecified SNOMED: 366795263 Qualifiers: Qualified Codes: N17.9 - Acute kidney failure, unspecified; N18.9 - Chronic kidney disease, unspecified (4) History of liver transplant ICD Codes: Z94.4 - Liver transplant status SNOMED: 792003853 (5) History of renal transplant ICD Codes: Z94.0 - Kidney transplant status SNOMED: 98894932, 764384511 Assessment/Plan: arredondo culture iv abx CT of abdomen and pelvis ordered CXR is clear lungs are not the source of the fever dvt prophylaxis f/u electrolytes Dede Barr MD August 10, 2018 12:07
--- NOTE | 2018-08-10 13:41 | NUR ---
NURSE NOTES: Patient taken downstairs to CT via wheelchair.
--- NOTE | 2018-08-10 13:58 | NUR ---
CASE MANAGEMENT:REVIEW 08/10/18 SI: SEPSIS. UTI. AC/CHR RENAL 98.9 71 18 131/89 98% ON RA IS: IV MEROPENEM Q8HRS IVF@100/HR IV PROTONIX QD NORVASC PO QD CELLCEPT PO BID PHOSPHA PO BID PROGRAF PO Q12 COZAAR PO QHS : MED/SURG STATUS 3 EAST DCP: FROM HOME
[2018-08-10 16:00] VITALS: BP 140/85
--- NOTE | 2018-08-10 16:03 | General Progress Note ---
Assessment/Plan Assessment/Plan: Assessment and Recs: # Thrombocytopenia - potential causes multifactorial, due to cirrhosis and splenomegaly as well, meds reviewed, on antisuppressants, has been admitted before 2012 --> Hep panel and HIV are negative studies --> US abd does not comment on liver, shows transplanted kidney ++ splenomegaly --> Peripheral smear ordered to evaluate for blasts /schistocytes --> abx and other meds have been reviewed --> ok for ppx if plt >50k w/ either heparin or lovenox --> Transfuse if Plt < 20k and fever, or if Plt < 10k without fever # Anemia of chronic disease (or of iron deficiency) due to underlying chronic medical issues, multifactorial --> Anemia workup has been ordered, rule out gi bleed --> No evidence of hemolysis is noted, peripheral smear has been reviewed. --> Hgb goal >7. Transfuse prn. --> Epogen or iron at this time is not particularly indicated --> Medications have been reviewed --> evaluate with Gi team prn --> transfuse if hgb is < 7 (will trend CBC daily) --> low threshold for gi evaluation in case has occult + # History of liver cirrhosis. chronic --> History of renal and liver transplant. --> History of immunosuppressive medications. --> History of splenomegaly. # Hypertension. --> sbp goal is <140 --> as per cards # History of pulmonary hypertension. # Renal failure (ARF), acute on chronic # UTI (urinary tract infection) with sepsis --> s/p abx The timing of this note does not necessarily reflect the time of the patient was seen. Greatly appreciate consultation! Subjective Constitutional: Denies: no symptoms, chills, diaphoresis, fever, malaise, weakness, other HEENT: Denies: no symptoms, eye pain, blurred vision, tearing, double vision, ear pain, ear discharge, nose pain, nose congestion, throat pain, throat swelling, mouth pain, mouth swelling, other Respiratory: Denies: no symptoms, cough, orthopnea, shortness of breath, SOB with excertion, SOB at rest, sputum, stridor, wheezing, other Gastrointestinal/Abdominal: Denies: no symptoms, abdomen distended, abdominal pain, black stools, tarry stools, blood in stool, constipated, diarrhea, difficulty swallowing, nausea, poor appetite, poor fluid intake, rectal bleeding , vomiting, other Genitourinary: Denies: no symptoms, burning, discharge, frequency, flank pain, hematuria, incontinence, pain, urgency, other Neurologic/Psychiatric: Denies: no symptoms, anxiety, depressed, emotional problems, headache, numbness, paresthesia, pre-existing deficit, seizure, tingling, tremors, weakness, other Endocrine: Denies: no symptoms, excessive sweating, flushing, intolerance to cold, intolerance to heat, increased hunger, increased thirst, increased urine, unexplained weight gain, unexplained weight loss, other Allergies: Coded Allergies: No Known Allergies (Unverified , 08/09/18) Subjective 08/10: sitting up in chair, no fevers or chills noted, no bleeding Objective Last 24 Hour Vital Signs Date Time Temp Pulse Resp B/P (MAP) Pulse Ox O2 Delivery O2 Flow Rate FiO2 08/10/18 12:00 98.9 71 18 131/89 (103) 98 08/10/18 09:00 Room Air 08/10/18 09:00 67 137/79 08/10/18 08:00 98.6 67 18 137/79 (98) 97 08/10/18 04:00 98.4 69 20 125/68 (87) 95 08/10/18 00:00 98.3 64 18 117/73 (88) 99 08/09/18 21:00 Room Air 08/09/18 20:33 134/75 08/09/18 20:00 98.1 69 18 134/75 (94) 97 Intake and Output 08/09/18 08/10/18 19:00 07:00 Intake Total 720 ml 1340 ml Output Total 500 ml Balance 720 ml 840 ml Intake Oral 720 ml 240 ml IV Total 1100 ml Output Urine Total 500 ml Height (Feet): 5 Height (Inches): 8.00 Weight (Pounds): 195 General Appearance: alert EENT: TMs normal Neck: supple Abdomen: no mass Extremities: non-tender Edema: 1+ Leg (L), 1+ Leg (R) Edema: mild edema Neurologic: oriented x 3 Skin: warm/dry Edson Olvera MD August 10, 2018 16:03
--- NOTE | 2018-08-10 17:05 | Diagnostic Imaging Report ---
Indication: Fever, tachycardia Technique: Spiral acquisitions obtained through the abdomen and pelvis. Patient given oral contrast. No IV contrast utilized, per referring physician request.. Multiplanar reconstructions were generated. Total dose length product 820.8 mGycm. CTDIvol(s) 14.12 mGy. Dose reduction achieved using automated exposure control Comparison: None Findings: Lack of IV contrast limits assessment of the solid organs. There is a transplanted liver. Numerous surgical clips are seen surrounding the liver. A few gas bubbles are seen within the liver. No focal hepatic abnormality. There is radiopaque object in the downstream superior mesenteric vein, of uncertain significance but presumably related to prior surgery. The portal vein is somewhat dilated. The splenic vein is somewhat dilated with prominent veins in the splenic hilum. The spleen is mildly enlarged, measuring 13 cm long axis dimension. It demonstrates no focal abnormality. There is a left iliac fossa transplant kidney. This demonstrates no evidence of hydronephrosis or perinephric fat stranding. There is a cyst in the upper pole. The teller kidneys are atrophic comment demonstrate no focal abnormality.. The appendix is normal. No evidence of diverticulosis or diverticulitis. No small bowel distention. Ingested contrast has traversed most but not all of the small bowel. No small bowel wall thickening. No free or loculated intraperitoneal gas or fluid. Distal esophagus demonstrates equivocal mild wall thickening. The stomach and duodenum are unremarkable. The pancreas and adrenals are unremarkable. Numerous surgical clips are seen in the omental fat. Surgical clips are also seen in the subcutaneous fat. No retroperitoneal or mesenteric mass or adenopathy. No pelvic mass or adenopathy. The prostate is prominent. The bladder demonstrates wall thickening. Impression: Evidence of prior liver transplant. Findings as noted. Gas bubbles in the liver. This is presumably on the basis of pneumobilia as a distribution is not characteristic of portal venous gas. Pneumobilia could be related to the prior surgery depending on what kind of biliary anastomosis was performed, but the possibility of cholangitis due to gas-forming organism should also be considered. Bladder wall thickening, could indicate cystitis. Correlate with clinical and laboratory findings Borderline splenomegaly Left iliac fossa transplant kidney. No unusual features. Note cyst in the upper pole Atrophic teller kidneys Equivocal mild esophageal wall thickening, could indicate esophagitis The CT scanner at [facility] is accredited by the [employer] and the scans are performed using protocols designed to limit radiation exposure to as low as reasonably achievable to attain images of sufficient resolution adequate for diagnostic evaluation.
--- NOTE | 2018-08-10 18:33 | Consultation ---
Consult Note Consult Note [id number] Timbo Barbosa MD August 10, 2018 18:33
--- NOTE | 2018-08-10 19:30 | NUR ---
NURSE NOTES: Received report from DOMINGO Mccarthy and rounds made. Received pt sitting in chair, AOX4, denies any pain, no distress noted. Call light within reach. Will continue to monitor.
--- NOTE | 2018-08-10 19:30 | NUR ---
HAND-OFF: Report given to Preston LANE. Patient is stable.
[2018-08-10 20:00] VITALS: BP 135/87
--- NOTE | 2018-08-10 20:30 | Progress Note ---
DATE: 08/09/2018 NOTE: POOR AUDIO. SUBJECTIVE: Clinically, the patient's condition is markedly improved. PHYSICAL EXAMINATION: VITAL SIGNS: Blood pressure is 130/74, his pulse is 68, respirations are 20, and temperature was 98. HEENT: Eyes were normal. ENT, mucous membranes were moist and intact. NECK: Supple with no JVD without lymph nodes. LUNGS: Clear. HEART: Normal sounds with regular beats. There is no tachycardia at rest. ABDOMEN: Soft and nontender with normal bowel sounds. EXTREMITIES: Warm without cyanosis, clubbing, or edema. In addition, the patient slept well and regained his appetite and 01:03 without any difficulty, which he did not have in the previous 48 hours. LABORATORY AND DIAGNOSTIC DATA: Hemoglobin is 11.8, hematocrit 35.5 with MCV of 83, WBC of 9.8, and platelets 72. His BUN and creatinine is 22 and 1.8 respectively. Sodium is 138, potassium 4.4, chloride 107, CO2 is 18. His calcium is 8.1. Total iron-binding capacity is normal, his saturation is 10. His liver function tests, his SGOT is 78, his SGPT is 64, and his alkaline phosphatase is 177. LDH is 120. CRP 13.8. Albumin is 2.8 and total protein is 7. His lactic acid was 2.4 and last night became 1.0. IMPRESSION: The patient appeared to respond a bit. His blood culture grew Gram-negative rods. His urine culture showed no growth. Blood culture was positive for . His Zosyn has been changed to meropenem 1 g IV piggyback q.8 h. Chest x-ray yesterday showed no active disease. His abdominal ultrasound today revealed that there was no ascites. The liver was unremarkable. Common bile duct was 6 mm. Gallbladder was not seen. Pancreas is normal . The spleen was enlarged and there is a left renal in the left renal iliac fossa. no hydronephrosis and 0.75/0.79 . The patient is doing clinically well on his current medication. CBC, BMP will be repeated in the a.m. Sherrell Heath M.D. DR: LOUIS JOB#: [id number] CC:
[2018-08-10] MEDS: Losartan 25mg tab ORAL SCH (20:43)
--- NOTE | 2018-08-10 21:00 | Progress Note ---
DATE: 08/10/2018 SUBJECTIVE: The patient is awake alert, afebrile, and hemodynamically stable, but he has persistent tachycardia at rest. PHYSICAL EXAMINATION: VITAL SIGNS: His blood pressure is 140/85, his pulse is 104, respirations are 20, and temperature is 99. HEENT: Eyes were normal. ENT, mucous membranes were moist and intact. NECK: Supple with no JVD without lymph nodes. LUNGS: Clear. HEART: Normal sounds with regular beats. There is tachycardia at rest. ABDOMEN: Soft and nontender with normal bowel sounds. Gastrostomy site is clean. EXTREMITIES: Warm without cyanosis, clubbing, or edema. LABORATORY DATA: Hemoglobin is 11.8, hematocrit 35.5 with MCV of 83, WBC of 9.8, and platelets is 72. His BUN and creatinine is 22 and 1.8. His sodium is 138, potassium 4.4, chloride 107, CO2 was 18. His liver function tests are slightly elevated with SGOT 238 and SGPT 264. Ammonia was 25. IMPRESSION: The patient's clinical condition has markedly improved. His weakness improved. His appetite regained as well about energy and body language, however, he has persistent tachycardia at rest and low-grade temperature. PLAN: The patient was continued with imipenem 1 g IV piggyback q.8 h. The case has been discussed with Infectious Disease specialist and no change in antibiotics to place. Apparently after getting the information from his daughter, who is at [employer], the patient did not have abdominal pain, nausea, high fever and shaking . CBC, BMP, LFTs, and UA will be taken in the a.m. We will continue with imipenem. Sherrell Heath M.D. DR: LOUIS JOB#: [id number] CC:
[2018-08-10 23:46] LABS: APPEARANCE,URINE CLEAR; BILIRUBIN, URINE NEGATIVE (NEGATIVE); COLOR,URINE PALE YELLOW; GLUCOSE, URINE (UA) NEGATIVE (NEGATIVE); KETONES,URINE NEGATIVE (NEGATIVE); LEUKOCYTE ESTERASE ,URINE 1+ (NEGATIVE); NITRITE,URINE NEGATIVE (NEGATIVE); PH,URINE 6 (4.5-8.0); PROTEIN,URINE 1+ (NEGATIVE); UROBILINOGEN,URINE NORMAL MG/DL (0.0-1.0)
[2018-08-11] VITALS: BP 127/84
--- NOTE | 2018-08-11 00:15 | Consultation ---
DATE OF CONSULTATION: 08/10/2018 INFECTIOUS DISEASE CONSULTATION CONSULTING PHYSICIAN: Timbo Barbosa M.D. REFERRING PHYSICIAN: Sherrell Heath M.D. REASON FOR CONSULTATION: Evaluation of the patient for sepsis, bacteremia, and antibiotic management. HISTORY OF PRESENT ILLNESS: The patient is a 57-year-old male with multiple medical problems, as listed below, who has been admitted to this medical center for fever and chills. The patient was found to have a gram-negative bacteremia. CT scan of the abdomen showed pneumobilia. An Infectious Disease consultation has been requested for further evaluation of the patient and antibiotic management. PAST MEDICAL HISTORY: 1. and liver transplant 15 years ago. 2. History of gastrointestinal bleed. 3. History of kidney transplant. 4. History of alcohol abuse in the past. 5. History of pulmonary hypertension. MEDICATIONS: Meropenem. ALLERGIES: No known drug allergies. SOCIAL HISTORY: Ex-alcohol abuser. FAMILY HISTORY: Not contributing. REVIEW OF SYSTEMS: HEENT: No recent change in vision or hearing. PULMONARY: No cough or shortness of breath. CARDIOVASCULAR: No chest pain or palpitations. GASTROINTESTINAL/ABDOMEN: History of abdominal pain prior to the admission. GENITOURINARY: No dysuria. MUSCULOSKELETAL: No pain in extremities. NEUROLOGIC: No evidence of seizure. PHYSICAL EXAMINATION: VITAL SIGNS: Temperature 98.9, pulse 86, respiratory rate 18, and blood pressure 140/85. HEENT: No pale conjunctivae. No icterus. NECK: No lymphadenopathy. CHEST: Clear. HEART: S1 and S2. ABDOMEN: Soft, obese, and nontender. EXTREMITIES: No cyanosis. NEUROLOGIC: Awake and alert. LABORATORY DATA: White blood cells 9.8, hemoglobin 11, and platelets 72,000. UA unremarkable. BUN 22 and creatinine 1.8. AST 38, ALT 64, and alkaline phosphatase 177. Hepatitis panel A, B, and C negative. Human immunodeficiency virus is negative. Blood culture is growing gram-negative rods. Urine culture is coagulase-negative Staph. CT of the abdomen showed evidence of pneumobilia. Chest x-ray NAPD. ASSESSMENT: The patient is a 57-year-old male with multiple medical problems, as listed below, who has, 1. Sepsis. 2. Bacteremia, gram-negative rods. 3. Status post fever. 4. Normal WBC. 5. Urine culture coag-negative Staph (the patient is asymptomatic). 6. Gram-negative bacteremia, rule out cholangitis. 7. No evidence of pneumonia. PLAN: 1. We will continue the patient on IV meropenem. 2. Monitor CBC. 3. Monitor BMP. 4. Monitor cultures. 5. We will order HIDA scan. 6. Recommend GI consultation. 7. Based on the patient's clinical course and laboratories, we will do further recommendations. Thank you, Dr. Heath, for allowing me to participate in the care of this patient. I will follow the patient with you during this hospitalization. Timbo Barbosa M.D. DR: JESSENIA JOB#: [id number] CC:
[2018-08-11 04:00] VITALS: BP 124/77
[2018-08-11] MEDS: Meropenem 1 GM in NS 55 ML IVPB SCH (05:56)
--- NOTE | 2018-08-11 07:16 | NUR ---
HAND-OFF: Report given to DOMINGO Kaplan. Pt in stable condition.
--- NOTE | 2018-08-11 07:30 | NUR ---
NURSE NOTES: Received pt from DOMINGO Johnston. pt was sitting, no c/o pain. no acute distress, call light w/in reach
[2018-08-11 07:47] LABS: HEMATOCRIT 36.3 % (42.0-52.0); HEMOGLOBIN 12.1 G/DL (14.2-18.0); MEAN CORPUSCULAR VOLUME 82 FL (80-99); PLATELET COUNT 82 K/UL (150-450); RED BLOOD COUNT 4.41 M/UL (4.70-6.10); RED CELL DISTRIBUTION WIDTH 12.7 % (11.6-14.8)
[2018-08-11 08:00] VITALS: BP 126/84
[2018-08-11 08:12] LABS: ALANINE AMINOTRANSFERASE 38 U/L (12-78); ALBUMIN 2.9 G/DL (3.4-5.0); ALBUMIN/GLOBULIN RATIO 0.7 (1.0-2.7); ALKALINE PHOSPHATASE 182 U/L (46-116); ANION GAP 8 mmol/L (5-15); ASPARTATE AMINO TRANSFERASE 14 U/L (15-37); BILIRUBIN,TOTAL 0.5 MG/DL (0.2-1.0); BLOOD UREA NITROGEN 17 mg/dL (7-18); CALCIUM 8.5 MG/DL (8.5-10.1); CARBON DIOXIDE 23 MMOL/L (21-32); CHLORIDE 106 MMOL/L (98-107); CREATININE 1.5 MG/DL (0.55-1.30); PHOSPHORUS 2.9 MG/DL (2.5-4.9); POTASSIUM 3.9 MMOL/L (3.5-5.1); SODIUM 137 MMOL/L (136-145)
[2018-08-11] MEDS: Pantoprazole Inj IVP SCH (08:12)
[2018-08-11] MEDS: Mycophenolate 250mg cap ORAL SCH ×2 (08:12→17:53)
[2018-08-11] MEDS: TADALAFIL 20 MG ORAL SCH (08:13)
[2018-08-11] MEDS: Phospha 250 Neutral tab ORAL SCH ×2 (08:13→17:53)
--- NOTE | 2018-08-11 08:24 | Pulmonology Progress Note ---
Assessment/Plan Assessment/Plan ASSESSMENT Sepsis with E coli bacteremia Possible UTI Acute on chronic renal failure History of liver and renal transplant Thrombocytopenia Anemia Pulmonary hypertension Hypertension PLAN OF CARE MS floor abx BCX +E coli, UCX + SCON, abx as per ID recs; ? de-escalate? -per ID recs O2 titrate to keep pulse ox above 92% pulmonary toilet prn CXR no acute cardiopulmonary pathology/ no evidence of pulmonary infection HIV nonreactive hepatitis panel negative monitor H&H with goal to keep hemoglobin above 7 anemia work-up c/w anemia of chronic disease monitor platelet count abdominal ultrasound unremarkable GI prophylaxis continue tacrolimus , recommend to check the level -pre primary discretion HIDA scan pending - can t be done until Monday - feed pt BP management with CCB and ARB continue statin and Zetia monitor renal paramerts, avoid nephrotoxic as possible, correct e/lytes prn case discussed and evaluated by supervising physician Subjective Allergies: Coded Allergies: No Known Allergies (Unverified , 08/09/18) Subjective denies abdominal pain creat trending down no resp distress no fever, no leukocytosis BCX grew E coli Objective Last 24 Hour Vital Signs Date Time Temp Pulse Resp B/P (MAP) Pulse Ox O2 Delivery O2 Flow Rate FiO2 08/11/18 08:12 68 126/84 08/11/18 08:00 98.1 68 18 126/84 (98) 96 08/11/18 07:34 Room Air 08/11/18 04:00 98.6 74 17 124/77 (93) 96 08/11/18 00:00 98.2 70 18 127/84 (98) 99 08/10/18 21:00 Room Air 08/10/18 20:43 135/87 08/10/18 20:00 98.8 77 18 135/87 (103) 99 08/10/18 16:00 99.0 81 20 140/85 (103) 99 08/10/18 12:00 98.9 71 18 131/89 (103) 98 08/10/18 09:00 Room Air 08/10/18 09:00 67 137/79 Intake and Output 08/10/18 08/11/18 19:00 07:00 Intake Total 1060 ml 1210 ml Output Total 450 ml Balance 1060 ml 760 ml Intake Oral 960 ml 100 ml IV Total 100 ml 1110 ml Output Urine Total 450 ml General Appearance: no acute distress HEENT: normocephalic, atraumatic, anicteric, mucous membranes moist Respiratory/Chest: chest wall non-tender, lungs clear Cardiovascular: normal rate, regular rhythm, no gallop/murmur, no JVD Abdomen: normal bowel sounds, soft, non tender Extremities: no edema, pedal pulses normal Neurologic/Psychiatric: alert, oriented x 3, responsive Musculoskeletal: normal muscle bulk Microbiology Date/Time Source Procedure Growth Status 08/08/18 18:40 Blood Blood Culture - Final Escherichia Coli Complete 08/08/18 18:30 Blood Blood Culture - Final Escherichia Coli Complete 08/08/18 18:50 Urine,Clean Catch Urine Culture - Final Staphylococcus Sp Coag Neg Complete Laboratory Tests 08/10/18 23:32: Urine Color Pale yellow, Urine Appearance Clear, Urine pH 6, Urine Specific [place] 1.010, Urine Protein 1+H, Urine Glucose (UA) Negative, Urine Ketones Negative, Urine Blood 3+H, Urine Nitrite Negative, Urine Bilirubin Negative, Urine Urobilinogen Normal, Urine Leukocyte Esterase 1+H, Urine RBC 2-4H, Urine WBC 0-2, Urine Squamous Epithelial Cells None, Urine Bacteria None 08/11/18 07:00: White Blood Count 5.0, Red Blood Count 4.41L, Hemoglobin 12.1L, Hematocrit 36.3L , Mean Corpuscular Volume 82, Mean Corpuscular Hemoglobin 27.5, Mean Corpuscular Hemoglobin Concent 33.4, Red Cell Distribution Width 12.7, Platelet Count 82L, Mean Platelet Volume 10.3H, Neutrophils (%) (Auto) , Lymphocytes (%) (Auto) , Monocytes (%) (Auto) , Eosinophils (%) (Auto) , Basophils (%) (Auto) , Neutrophils % (Manual) [Pending], Lymphocytes % (Manual) [Pending], Platelet Estimate [Pending], Platelet Morphology [Pending], Erythrocyte Sedimentation Rate [Pending], Sodium Level 137, Potassium Level 3.9, Chloride Level 106, Carbon Dioxide Level 23, Anion Gap 8, Blood Urea Nitrogen 17, Creatinine 1.5H, Estimat Glomerular Filtration Rate 48.1, Glucose Level 102, Calcium Level 8.5, Phosphorus Level 2.9, Magnesium Level 1.4L, Total Bilirubin 0.5, Aspartate Amino Transf (AST/SGOT) 14L, Alanine Aminotransferase (ALT/SGPT) 38, Alkaline Phosphatase 182H, C-Reactive Protein, Quantitative 5.7H, Total Protein 7.3, Albumin 2.9L, Globulin 4.4, Albumin/Globulin Ratio 0.7L Current Medications Medications (Trade) Dose Ordered Sig/Bria Route PRN Reason Start Time Stop Time Status Last Admin Dose Admin Acetaminophen (Tylenol) 500 mg Q6H PRN ORAL Mild Pain/Temp > 100.5 08/08/18 23:30 09/07/18 23:29 08/10/18 07:24 Amlodipine Besylate (Norvasc) 10 mg DAILY ORAL 08/09/18 09:00 09/08/18 08:59 08/11/18 08:12 Barium Sulfate (Readi-Cat 2) 450 ml NOW PRN ORAL Radiology Procedure 08/10/18 11:30 08/12/18 11:29 EZETIMIBE (Zetia) 10 mg BEDTIME ORAL 08/09/18 21:00 09/08/18 20:59 08/10/18 20:44 Iopamidol (Isovue-300 100ml) 100 ml NOW PRN INJ Radiology Procedure 08/10/18 11:30 08/11/18 11:29 Losartan Potassium (Cozaar) 25 mg QHS ORAL 08/08/18 23:30 09/07/18 23:29 08/10/18 20:43 Meropenem 1 gm/ Sodium Chloride 55 ml @ 110 mls/hr Q8HR IVPB 08/09/18 12:00 08/15/18 11:59 08/11/18 05:56 Mycophenolate Mofetil (Cellcept) 500 mg TWICE A DAY ORAL 08/09/18 09:00 09/08/18 08:59 08/11/18 08:12 Ondansetron HCl (Zofran) 4 mg Q4H PRN IVP Nausea & Vomiting 08/08/18 22:45 09/07/18 22:44 Pantoprazole (Protonix) 40 mg DAILY IVP 08/09/18 09:00 09/08/18 08:59 08/11/18 08:12 Patient Own Medication (Patient's Own Med) 2 ea DAILY ORAL 08/11/18 09:00 09/10/18 08:59 08/11/18 08:13 Phosphorus (Phospha 250 Neutral) 500 mg BID ORAL 08/09/18 09:00 09/08/18 08:59 08/11/18 08:13 Pravastatin Sodium (Pravachol) 40 mg BEDTIME ORAL 08/09/18 21:00 09/08/18 20:59 08/10/18 20:44 Sodium Chloride 1,000 ml @ 100 mls/hr Q10H IV 08/08/18 22:45 09/07/18 22:44 08/11/18 00:14 Tacrolimus (Prograf) 1 mg EVERY 12 HOURS ORAL 08/09/18 09:00 09/08/18 08:59 08/11/18 08:13 Sugar Bates NP August 11, 2018 08:24
--- NOTE | 2018-08-11 09:19 | NUR ---
CHARGE NURSE NOTE; NM hepatobiliary scan will be done on Monday (no available on weekends). notified.
--- NOTE | 2018-08-11 11:55 | Infectious Diseases Prog Note ---
Assessment/Plan Assessment/Plan ASSESSMENT: The patient is a 57-year-old male with Sepsis, sp Bacteremia, EColi rule out Probable cholangitis Elev Alk Status post fever Normal WBC Urine culture coag-negative Staph (the patient is asymptomatic). No evidence of pneumonia. ABRAHAM improving ( Base line 1.4) Kidney and liver transplant 15 years ago History of gastrointestinal bleed History of alcohol abuse in the past History of pulmonary hypertension PLAN: Continue the patient on IV Rocephin and Flagyl d# 1 and DC Meropenem d# 2 Monitor CBC. Monitor BMP. Monitor cultures. will order MRCP for Monday ( DC HIDA scan., as this can not be done over the wkend) ro stenosis Recommend GI consultation Subjective Allergies: Coded Allergies: No Known Allergies (Unverified , 08/09/18) Subjective comfortable feeling better Objective Vital Signs Last 24 Hour Vital Signs Date Time Temp Pulse Resp B/P (MAP) Pulse Ox O2 Delivery O2 Flow Rate FiO2 08/11/18 08:12 68 126/84 08/11/18 08:00 98.1 68 18 126/84 (98) 96 08/11/18 07:34 Room Air 08/11/18 04:00 98.6 74 17 124/77 (93) 96 08/11/18 00:00 98.2 70 18 127/84 (98) 99 08/10/18 21:00 Room Air 08/10/18 20:43 135/87 08/10/18 20:00 98.8 77 18 135/87 (103) 99 08/10/18 16:00 99.0 81 20 140/85 (103) 99 08/10/18 12:00 98.9 71 18 131/89 (103) 98 Height (Feet): 5 Height (Inches): 8.00 Weight (Pounds): 195 HEENT: mucous membranes moist Respiratory/Chest: normal breath sounds Cardiovascular: regularly irregular Abdomen: no organomegaly Microbiology Date/Time Source Procedure Growth Status 08/08/18 18:40 Blood Blood Culture - Final Escherichia Coli Complete 08/08/18 18:30 Blood Blood Culture - Final Escherichia Coli Complete 08/08/18 18:50 Urine,Clean Catch Urine Culture - Final Staphylococcus Sp Coag Neg Complete Laboratory Tests Test 08/10/18 23:32 08/11/18 07:00 Urine Color Pale yellow Urine Appearance Clear Urine pH 6 (4.5-8.0) Urine Specific [place] 1.010 (1.005-1.035) Urine Protein 1+ (NEGATIVE) H Urine Glucose (UA) Negative (NEGATIVE) Urine Ketones Negative (NEGATIVE) Urine Blood 3+ (NEGATIVE) H Urine Nitrite Negative (NEGATIVE) Urine Bilirubin Negative (NEGATIVE) Urine Urobilinogen Normal MG/DL (0.0-1.0) Urine Leukocyte Esterase 1+ (NEGATIVE) H Urine RBC 2-4 /HPF (0 - 0) H Urine WBC 0-2 /HPF (0 - 0) Urine Squamous Epithelial Cells None /LPF (NONE/OCC) Urine Bacteria None /HPF (NONE) White Blood Count 5.0 K/UL (4.8-10.8) Red Blood Count 4.41 M/UL (4.70-6.10) L Hemoglobin 12.1 G/DL (14.2-18.0) L Hematocrit 36.3 % (42.0-52.0) L Mean Corpuscular Volume 82 FL (80-99) Mean Corpuscular Hemoglobin 27.5 PG (27.0-31.0) Mean Corpuscular Hemoglobin Concent 33.4 G/DL (32.0-36.0) Red Cell Distribution Width 12.7 % (11.6-14.8) Platelet Count 82 K/UL (150-450) L Mean Platelet Volume 10.3 FL (6.5-10.1) H Neutrophils (%) (Auto) % (45.0-75.0) Lymphocytes (%) (Auto) % (20.0-45.0) Monocytes (%) (Auto) % (1.0-10.0) Eosinophils (%) (Auto) % (0.0-3.0) Basophils (%) (Auto) % (0.0-2.0) Differential Total Cells Counted 100 Neutrophils % (Manual) 67 % (45-75) Lymphocytes % (Manual) 25 % (20-45) Monocytes % (Manual) 6 % (1-10) Eosinophils % (Manual) 2 % (0-3) Basophils % (Manual) 0 % (0-2) Band Neutrophils 0 % (0-8) Platelet Estimate Decreased L Platelet Morphology Normal Red Blood Cell Morphology Normal Erythrocyte Sedimentation Rate 61 MM/HR (0-20) H Sodium Level 137 MMOL/L (136-145) Potassium Level 3.9 MMOL/L (3.5-5.1) Chloride Level 106 MMOL/L (98-107) Carbon Dioxide Level 23 MMOL/L (21-32) Anion Gap 8 mmol/L (5-15) Blood Urea Nitrogen 17 mg/dL (7-18) Creatinine 1.5 MG/DL (0.55-1.30) H Estimat Glomerular Filtration Rate 48.1 mL/min (>60) Glucose Level 102 MG/DL (74-106) Calcium Level 8.5 MG/DL (8.5-10.1) Phosphorus Level 2.9 MG/DL (2.5-4.9) Magnesium Level 1.4 MG/DL (1.8-2.4) L Total Bilirubin 0.5 MG/DL (0.2-1.0) Aspartate Amino Transf (AST/SGOT) 14 U/L (15-37) L Alanine Aminotransferase (ALT/SGPT) 38 U/L (12-78) Alkaline Phosphatase 182 U/L (46-116) H C-Reactive Protein, Quantitative 5.7 mg/dL (0.00-0.90) H Total Protein 7.3 G/DL (6.4-8.2) Albumin 2.9 G/DL (3.4-5.0) L Globulin 4.4 g/dL Albumin/Globulin Ratio 0.7 (1.0-2.7) L Current Medications Medications (Trade) Dose Ordered Sig/Bria Route PRN Reason Start Time Stop Time Status Last Admin Dose Admin Acetaminophen (Tylenol) 500 mg Q6H PRN ORAL Mild Pain/Temp > 100.5 08/08/18 23:30 09/07/18 23:29 08/10/18 07:24 Amlodipine Besylate (Norvasc) 10 mg DAILY ORAL 08/09/18 09:00 09/08/18 08:59 08/11/18 08:12 Barium Sulfate (Readi-Cat 2) 450 ml NOW PRN ORAL Radiology Procedure 08/10/18 11:30 08/12/18 11:29 EZETIMIBE (Zetia) 10 mg BEDTIME ORAL 08/09/18 21:00 09/08/18 20:59 08/10/18 20:44 Losartan Potassium (Cozaar) 25 mg QHS ORAL 08/08/18 23:30 09/07/18 23:29 08/10/18 20:43 Magnesium Sulfate 100 ml @ 100 mls/hr Q1H IV 08/11/18 12:30 08/11/18 14:29 UNV Meropenem 1 gm/ Sodium Chloride 55 ml @ 110 mls/hr Q8HR IVPB 08/09/18 12:00 08/15/18 11:59 08/11/18 05:56 Mycophenolate Mofetil (Cellcept) 500 mg TWICE A DAY ORAL 08/09/18 09:00 09/08/18 08:59 08/11/18 08:12 Ondansetron HCl (Zofran) 4 mg Q4H PRN IVP Nausea & Vomiting 08/08/18 22:45 09/07/18 22:44 Pantoprazole (Protonix) 40 mg DAILY IVP 08/09/18 09:00 09/08/18 08:59 08/11/18 08:12 Patient Own Medication (Patient's Own Med) 2 ea DAILY ORAL 08/11/18 09:00 09/10/18 08:59 08/11/18 08:13 Phosphorus (Phospha 250 Neutral) 500 mg BID ORAL 08/09/18 09:00 09/08/18 08:59 08/11/18 08:13 Pravastatin Sodium (Pravachol) 40 mg BEDTIME ORAL 08/09/18 21:00 09/08/18 20:59 08/10/18 20:44 Sodium Chloride 1,000 ml @ 100 mls/hr Q10H IV 08/08/18 22:45 09/07/18 22:44 08/11/18 00:14 Tacrolimus (Prograf) 1 mg EVERY 12 HOURS ORAL 08/09/18 09:00 09/08/18 08:59 08/11/18 08:13 Timbo Barbosa MD August 11, 2018 11:55
[2018-08-11 12:00] VITALS: BP 127/74
[2018-08-11] MEDS: metroNIDAZOLE 500mg tab ORAL SCH ×2 (15:09→21:23)
[2018-08-11] MEDS: cefTRIAXone 2 GM in D5W 55 ML IVPB SCH (15:10)
[2018-08-11 16:00] VITALS: BP 141/90
[2018-08-11 20:00] VITALS: BP 135/83
--- NOTE | 2018-08-11 20:48 | NUR ---
NURSE NOTES: recvd report from day shift nurse; Patient sitting up in chair; a/o x 4; no s/s of pain; no SOB; iv site dry and intact; safety precautions in place; call light/bedside table within reach/ bed at lowest position will continue to monitor
[2018-08-11] MEDS: Losartan 25mg tab ORAL SCH (21:24)
[2018-08-12] VITALS (7 sets, daily range): BP systolic 121–143; BP diastolic 63–85
[2018-08-12] MEDS: metroNIDAZOLE 500mg tab ORAL SCH ×3 (05:18→21:14)
[2018-08-12 05:29] LABS: HEMATOCRIT 36.5 % (42.0-52.0); HEMOGLOBIN 12.2 G/DL (14.2-18.0); MEAN CORPUSCULAR VOLUME 82 FL (80-99); PLATELET COUNT 88 K/UL (150-450); RED BLOOD COUNT 4.45 M/UL (4.70-6.10); RED CELL DISTRIBUTION WIDTH 12.6 % (11.6-14.8); WHITE BLOOD COUNT 4.6 K/UL (4.8-10.8)
[2018-08-12 05:50] LABS: ANION GAP 10 mmol/L (5-15); BLOOD UREA NITROGEN 14 mg/dL (7-18); CALCIUM 8.3 MG/DL (8.5-10.1); CARBON DIOXIDE 22 MMOL/L (21-32); CHLORIDE 108 MMOL/L (98-107); CREATININE 1.4 MG/DL (0.55-1.30); POTASSIUM 4.1 MMOL/L (3.5-5.1); SODIUM 140 MMOL/L (136-145)
--- NOTE | 2018-08-12 07:30 | NUR ---
NURSE NOTES: Patient lying in bed awake. No complain of pain or distress at this time. Skin intact and dry. IV dressing intact and dry. Bed lowest position. Call light within reach. Will continue to monitor.
--- NOTE | 2018-08-12 07:53 | Pulmonology Progress Note ---
Assessment/Plan Assessment/Plan ASSESSMENT Sepsis with E coli bacteremia, r/o cholangitis Possible UTI Acute on chronic renal failure History of liver and renal transplant Thrombocytopenia Anemia Pulmonary hypertension Hypertension PLAN OF CARE MS floor abx BCX +E coli, UCX + SCON, abx as per ID recs; MRCP on Monday O2 titrate to keep pulse ox above 92% pulmonary toilet prn CXR no acute cardiopulmonary pathology/ no evidence of pulmonary infection HIV nonreactive hepatitis panel negative monitor H&H with goal to keep hemoglobin above 7 anemia work-up c/w anemia of chronic disease monitor platelet count abdominal ultrasound unremarkable GI prophylaxis continue tacrolimus , recommend to check the level -pre primary discretion BP management with CCB and ARB continue statin and Zetia monitor renal paramerts, avoid nephrotoxic as possible, correct e/lytes prn creat trending down case discussed and evaluated by supervising physician Subjective Allergies: Coded Allergies: No Known Allergies (Unverified , 08/09/18) Subjective denies abdominal pain creat trending down no resp distress no fever, no leukocytosis BCX grew E coli Objective Last 24 Hour Vital Signs Date Time Temp Pulse Resp B/P (MAP) Pulse Ox O2 Delivery O2 Flow Rate FiO2 08/12/18 04:00 99.2 76 18 130/63 (85) 95 08/12/18 00:00 98.7 73 18 122/68 (86) 98 08/11/18 21:24 135/83 08/11/18 21:00 Room Air 08/11/18 20:00 98.4 70 18 135/83 (100) 98 08/11/18 16:00 98.8 73 18 141/90 (107) 99 08/11/18 12:00 98.4 77 18 127/74 (91) 96 08/11/18 08:12 68 126/84 08/11/18 08:00 98.1 68 18 126/84 (98) 96 Intake and Output 08/11/18 08/12/18 19:00 07:00 Intake Total 700 ml 640 ml Output Total 650 ml Balance 700 ml -10 ml Intake Oral 600 ml 240 ml IV Total 100 ml 400 ml Output Urine Total 650 ml # Voids 2 2 # Bowel Movements 1 Objective General Appearance: no acute distress HEENT: normocephalic, atraumatic, anicteric, mucous membranes moist Respiratory/Chest: chest wall non-tender, lungs clear Cardiovascular: normal rate, regular rhythm, no gallop/murmur, no JVD Abdomen: normal bowel sounds, soft, non tender Extremities: no edema, pedal pulses normal Neurologic/Psychiatric: alert, oriented x 3, responsive Musculoskeletal: normal muscle bulk Laboratory Tests 08/12/18 05:15: White Blood Count 4.6L, Red Blood Count 4.45L, Hemoglobin 12.2L, Hematocrit 36.5L, Mean Corpuscular Volume 82, Mean Corpuscular Hemoglobin 27.5, Mean Corpuscular Hemoglobin Concent 33.5, Red Cell Distribution Width 12.6, Platelet Count 88L, Mean Platelet Volume 8.4, Neutrophils (%) (Auto) , Lymphocytes (%) ( Auto) , Monocytes (%) (Auto) , Eosinophils (%) (Auto) , Basophils (%) (Auto) , Neutrophils % (Manual) [Pending], Lymphocytes % (Manual) [Pending], Platelet Estimate [Pending], Platelet Morphology [Pending], Sodium Level 140, Potassium Level 4.1, Chloride Level 108H, Carbon Dioxide Level 22, Anion Gap 10, Blood Urea Nitrogen 14, Creatinine 1.4H, Estimat Glomerular Filtration Rate 52.1, Glucose Level 106, Calcium Level 8.3L, Magnesium Level 1.7L Current Medications Medications (Trade) Dose Ordered Sig/Bria Route PRN Reason Start Time Stop Time Status Last Admin Dose Admin Acetaminophen (Tylenol) 500 mg Q6H PRN ORAL Mild Pain/Temp > 100.5 08/08/18 23:30 09/07/18 23:29 08/10/18 07:24 Amlodipine Besylate (Norvasc) 10 mg DAILY ORAL 08/09/18 09:00 09/08/18 08:59 08/11/18 08:12 Barium Sulfate (Readi-Cat 2) 450 ml NOW PRN ORAL Radiology Procedure 08/10/18 11:30 08/12/18 11:29 Ceftriaxone Sodium 2 gm/ Dextrose 55 ml @ 110 mls/hr DAILY IVPB 08/11/18 14:00 08/18/18 13:59 08/11/18 15:10 EZETIMIBE (Zetia) 10 mg BEDTIME ORAL 08/09/18 21:00 09/08/18 20:59 08/11/18 21:24 Losartan Potassium (Cozaar) 25 mg QHS ORAL 08/08/18 23:30 09/07/18 23:29 08/11/18 21:24 Metronidazole (Flagyl) 500 mg Q8HR ORAL 08/11/18 14:00 08/18/18 13:59 08/12/18 05:18 Mycophenolate Mofetil (Cellcept) 500 mg TWICE A DAY ORAL 08/09/18 09:00 09/08/18 08:59 08/11/18 17:53 Ondansetron HCl (Zofran) 4 mg Q4H PRN IVP Nausea & Vomiting 08/08/18 22:45 09/07/18 22:44 Pantoprazole (Protonix) 40 mg DAILY IVP 08/09/18 09:00 09/08/18 08:59 08/11/18 08:12 Patient Own Medication (Patient's Own Med) 2 ea DAILY ORAL 08/11/18 09:00 09/10/18 08:59 08/11/18 08:13 Phosphorus (Phospha 250 Neutral) 500 mg BID ORAL 08/09/18 09:00 09/08/18 08:59 08/11/18 17:53 Pravastatin Sodium (Pravachol) 40 mg BEDTIME ORAL 08/09/18 21:00 09/08/18 20:59 08/11/18 21:24 Sodium Chloride 1,000 ml @ 100 mls/hr Q10H IV 08/08/18 22:45 09/07/18 22:44 08/12/18 05:19 Tacrolimus (Prograf) 1 mg EVERY 12 HOURS ORAL 08/09/18 09:00 09/08/18 08:59 08/11/18 21:24 Sugar aBtes NP August 12, 2018 07:53
[2018-08-12] MEDS ORDERED: Tubing IV Secondary IV ONE (08:36)
[2018-08-12] MEDS: Mycophenolate 250mg cap ORAL SCH ×2 (08:47→17:59)
[2018-08-12] MEDS: Pantoprazole Inj IVP SCH (08:47)
[2018-08-12] MEDS: cefTRIAXone 2 GM in D5W 55 ML IVPB SCH (08:47)
[2018-08-12] MEDS: Phospha 250 Neutral tab ORAL SCH ×2 (08:47→17:59)
[2018-08-12] MEDS: TADALAFIL 20 MG ORAL SCH (08:47)
--- NOTE | 2018-08-12 15:48 | General Progress Note ---
Assessment/Plan Assessment/Plan: Assessment and Recs: # Thrombocytopenia - potential causes multifactorial, due to cirrhosis and splenomegaly as well, meds reviewed, on antisuppressants, has been admitted before 2012 --> Hep panel and HIV are negative studies --> US abd does not comment on liver, shows transplanted kidney ++ splenomegaly --> Peripheral smear showed no blasts /schistocytes --> abx and other meds have been reviewed --> ok for ppx if plt >50k w/ either heparin or lovenox --> Transfuse if Plt < 20k and fever, or if Plt < 10k without fever # Anemia of chronic disease due to underlying chronic medical issues, multifactorial --> Anemia workup shows ferritin 256 --> No evidence of hemolysis is noted, peripheral smear has been reviewed. --> Hgb goal >7. Transfuse prn. --> Epogen or iron at this time is not particularly indicated --> Medications have been reviewed --> evaluate with Gi team prn --> transfuse if hgb is < 7 (will trend CBC daily) --> low threshold for gi evaluation in case has occult + # History of liver cirrhosis. chronic --> History of renal and liver transplant. --> History of immunosuppressive medications. --> History of splenomegaly # Hypertension. --> sbp goal is <140 --> as per cards # History of pulmonary hypertension. # Renal failure (ARF), acute on chronic # UTI (urinary tract infection) with sepsis --> s/p abx The timing of this note does not necessarily reflect the time of the patient was seen. Greatly appreciate consultation! Subjective Constitutional: Denies: no symptoms, chills, diaphoresis, fever, malaise, weakness, other HEENT: Denies: no symptoms, eye pain, blurred vision, tearing, double vision, ear pain, ear discharge, nose pain, nose congestion, throat pain, throat swelling, mouth pain, mouth swelling, other Cardiovascular: Denies: no symptoms, chest pain, edema, irregular heart rate, lightheadedness, palpitations, syncope, other Respiratory: Denies: no symptoms, cough, orthopnea, shortness of breath, SOB with excertion, SOB at rest, sputum, stridor, wheezing, other Gastrointestinal/Abdominal: Denies: no symptoms, abdomen distended, abdominal pain, black stools, tarry stools, blood in stool, constipated, diarrhea, difficulty swallowing, nausea, poor appetite, poor fluid intake, rectal bleeding , vomiting, other Neurologic/Psychiatric: Denies: no symptoms, anxiety, depressed, emotional problems, headache, numbness, paresthesia, pre-existing deficit, seizure, tingling, tremors, weakness, other Endocrine: Denies: no symptoms, excessive sweating, flushing, intolerance to cold, intolerance to heat, increased hunger, increased thirst, increased urine, unexplained weight gain, unexplained weight loss, other Hematologic/Lymphatic: Denies: no symptoms, anemia, easy bleeding, easy bruising, other Allergies: Coded Allergies: No Known Allergies (Unverified , 08/09/18) Subjective 08/10: sitting up in chair, no fevers or chills noted, no bleeding 08/12: mrcp potentially for monday, no f/c no bleeding Objective Last 24 Hour Vital Signs Date Time Temp Pulse Resp B/P (MAP) Pulse Ox O2 Delivery O2 Flow Rate FiO2 08/12/18 12:00 98.4 68 19 135/82 (99) 97 08/12/18 09:00 Room Air 08/12/18 08:47 73 133/84 08/12/18 08:00 99.1 73 19 133/84 (100) 97 08/12/18 04:00 99.2 76 18 130/63 (85) 95 08/12/18 00:00 98.7 73 18 122/68 (86) 98 08/11/18 21:24 135/83 08/11/18 21:00 Room Air 08/11/18 20:00 98.4 70 18 135/83 (100) 98 08/11/18 16:00 98.8 73 18 141/90 (107) 99 Intake and Output 08/11/18 08/12/18 19:00 07:00 Intake Total 700 ml 640 ml Output Total 650 ml Balance 700 ml -10 ml Intake Oral 600 ml 240 ml IV Total 100 ml 400 ml Output Urine Total 650 ml # Voids 2 2 # Bowel Movements 1 Laboratory Tests 08/12/18 05:15: White Blood Count 4.6L, Red Blood Count 4.45L, Hemoglobin 12.2L, Hematocrit 36.5L, Mean Corpuscular Volume 82, Mean Corpuscular Hemoglobin 27.5, Mean Corpuscular Hemoglobin Concent 33.5, Red Cell Distribution Width 12.6, Platelet Count 88L, Mean Platelet Volume 8.4, Neutrophils (%) (Auto) , Lymphocytes (%) ( Auto) , Monocytes (%) (Auto) , Eosinophils (%) (Auto) , Basophils (%) (Auto) , Differential Total Cells Counted 100, Neutrophils % (Manual) 64, Lymphocytes % ( Manual) 26, Monocytes % (Manual) 8, Eosinophils % (Manual) 1, Basophils % ( Manual) 1, Band Neutrophils 0, Platelet Estimate DecreasedL, Platelet Morphology Normal, Red Blood Cell Morphology Normal, Sodium Level 140, Potassium Level 4.1, Chloride Level 108H, Carbon Dioxide Level 22, Anion Gap 10 , Blood Urea Nitrogen 14, Creatinine 1.4H, Estimat Glomerular Filtration Rate 52.1, Glucose Level 106, Calcium Level 8.3L, Magnesium Level 1.7L Height (Feet): 5 Height (Inches): 8.00 Weight (Pounds): 195 Edson Olvera MD August 12, 2018 15:48
--- NOTE | 2018-08-12 17:15 | Progress Note ---
DATE: 08/11/2018 SUBJECTIVE: The patient is afebrile and hemodynamically stable. PHYSICAL EXAMINATION: VITAL SIGNS: Blood pressure is 141/90, pulse is 73, respirations now 18, and temperature 98.8. HEENT: Eyes were normal. ENT, mucous membranes were moist and intact. NECK: Supple with no JVD without lymph nodes. LUNGS: Clear. HEART: Normal sounds with regular beats. There is no tachycardia at rest. ABDOMEN: Soft and nontender with normal bowel sounds. Gastrostomy site is clean. EXTREMITIES: Warm without cyanosis, clubbing, or edema. LABORATORY AND DIAGNOSTIC DATA: Hemoglobin is 12.1, hematocrit 36.2 with MCV of 82, WBC of 5.0, and platelet is 82,000. His BUN and creatinine are 17 and 1.5, respectively. His sodium is 137, potassium 3.9, chloride 106, and CO2 is 23. His BUN and creatinine is 22 and 1.8 and the patient was admitted with 1.6 creatinine. His calcium is 8.5 2.9 1.4. SGOT, SGPT mildly elevated. His albumin is 2.9. His total protein is 7.3. His CRP declined from 13.8 to 5.7. IMPRESSION: Respiratory failure. The patient markedly improved with creatinine clearance BUN as well. Creatinine has improved improved as well. PLAN: Repeat laboratory tests will be done in the a.m. The patient has agreed to complete the treatment. Sherrell Heath M.D. DR: CHRISTIE JOB#: [id number] CC:
--- NOTE | 2018-08-12 19:40 | NUR ---
HAND-OFF: Report given to [address]. Patient in stable condition.
--- NOTE | 2018-08-12 19:50 | NUR ---
NURSE NOTES: Received pt from DOMINGO Husain. Pt awake, alert, and talkative. Bed in lowest position. Call light within reach. Will continue to monitor.
[2018-08-12] MEDS: Losartan 25mg tab ORAL SCH (21:14)
--- NOTE | 2018-08-13 01:15 | Progress Note ---
DATE: 08/12/2018 SUBJECTIVE: The patient is awake, alert, afebrile, and hemodynamically stable. PHYSICAL EXAMINATION: VITAL SIGNS: Blood pressure is 130/82, his pulse 69, respirations are 18, and temperature 98.5. HEENT: Eyes were normal. ENT, mucous membranes were moist and intact. NECK: Supple with no JVD without lymph nodes. Tracheostomy site is clean. LUNGS: Clear without rhonchi, rales, or wheezing. Secretions are small, thin, and astudillo. HEART: Normal sounds with regular beats. There is no S3, S4, or pericardial rub. ABDOMEN: Soft and nontender with normal bowel sounds. EXTREMITIES: Warm without cyanosis, clubbing, or edema. LABORATORY DATA: His hemoglobin is 12.2, hematocrit 36.5 with MCV of 82, WBC of 4.6, and platelets are 88,000. His BUN and creatinine are 14 and 1.4 respectively. Sodium is 140, potassium 4.1, chloride 108, and CO2 is 22, his calcium is 8.3, his magnesium is 1.7, and phosphorus is 2.9. IMPRESSION AND PLAN: The patient's renal function is now completely recovered prior to this admission. The patient can be discharged home in a.m. on Levaquin 750 mg daily for the next five days. Repeat laboratory tests will be done in two weeks. Sherrell Heath M.D. DR: LORA JOB#: [id number] CC:
[2018-08-13 03:13] VITALS: BP 130/81
[2018-08-13] MEDS: metroNIDAZOLE 500mg tab ORAL SCH ×2 (05:56→14:55)
[2018-08-13 07:07] LABS: BASOPHILS % (AUTO) 0.6 % (0.0-2.0); EOSINOPHILS % (AUTO) 3.2 % (0.0-3.0); HEMATOCRIT 36.6 % (42.0-52.0); HEMOGLOBIN 12.3 G/DL (14.2-18.0); LYMPHOCYTES % (AUTO) 28.5 % (20.0-45.0); MEAN CORPUSCULAR VOLUME 81 FL (80-99); MONOCYTES % (AUTO) 11.2 % (1.0-10.0); NEUTROPHILS % (AUTO) 56.5 % (45.0-75.0); PLATELET COUNT 105 K/UL (150-450); RED CELL DISTRIBUTION WIDTH 12.6 % (11.6-14.8); WHITE BLOOD COUNT 4.4 K/UL (4.8-10.8)
[2018-08-13 07:14] LABS: ANION GAP 10 mmol/L (5-15); BLOOD UREA NITROGEN 15 mg/dL (7-18); CALCIUM 8.6 MG/DL (8.5-10.1); CARBON DIOXIDE 22 MMOL/L (21-32); CHLORIDE 106 MMOL/L (98-107); CREATININE 1.3 MG/DL (0.55-1.30); POTASSIUM 4.3 MMOL/L (3.5-5.1); SODIUM 138 MMOL/L (136-145)
--- NOTE | 2018-08-13 07:36 | NUR ---
NURSE NOTES: Received report from DOMINGO Ku. Rounding done with outgoing nurse. Patient a/o x 4 and having breakfast sitting in the chair. Denies any pain at this time. Bed in lowest position, call light within reach. Will continue to monitor.
[2018-08-13 08:00] VITALS: BP 138/82
[2018-08-13] MEDS: Phospha 250 Neutral tab ORAL SCH (08:25)
[2018-08-13] MEDS: TADALAFIL 20 MG ORAL SCH (08:25)
[2018-08-13] MEDS: Mycophenolate 250mg cap ORAL SCH (08:25)
[2018-08-13] MEDS: cefTRIAXone 2 GM in D5W 55 ML IVPB SCH (08:26)
[2018-08-13] MEDS: Pantoprazole Inj IVP SCH (08:26)
[2018-08-13 12:00] VITALS: BP 129/85
--- NOTE | 2018-08-13 13:05 | Diagnostic Imaging Report ---
Indication: Cholangitis. Sepsis. Abdominal pain. History of liver transplant Technique: MRI of the abdomen was performed in a 1.5 Aleena magnet. Pulse sequences obtained include coronal and axial T2 single shot fast spin echo breathhold and respiratory gated coronal T2 3-D M.R.C.P.; this data set was displayed in different projections or MIPs. In addition, multiple coronal oblique thin T2 weighted, fat saturated SE sequences obtained through the CBD. Comparison: None Findings: There is no biliary ductal dilatation identified or choledocholithiasis. The gallbladder is absent. Signal within the liver is mildly heterogeneous. There is a good flow-void within the portal vein IVC and aorta. The kidneys are atrophic. There are multiple small cysts present within both kidneys. The spleen is enlarged. There is no ascites. IMPRESSION: Negative MRCP. No evidence of biliary ductal dilatation or stones. No evidence of abscess. Status post cholecystectomy Status post liver transplant. Atrophic kidneys. Multiple small cysts. Splenomegaly
--- NOTE | 2018-08-13 13:38 | Pulmonology Progress Note ---
Assessment/Plan Problems: (1) Sepsis (2) Gram-negative bacteremia (3) Renal failure (ARF), acute on chronic (4) History of liver transplant (5) History of renal transplant Assessment/Plan MRCP was negative. BC has Ecoli renal function improving will Call GI consult as recommended by ID. check WBC, ESR Subjective ROS Limited/Unobtainable: No Interval Events: MRCP done Constitutional: Reports: no symptoms HEENT: Repors: no symptoms Allergies: Coded Allergies: No Known Allergies (Unverified , 08/09/18) Objective Last 24 Hour Vital Signs Date Time Temp Pulse Resp B/P (MAP) Pulse Ox O2 Delivery O2 Flow Rate FiO2 08/13/18 09:00 Room Air 08/13/18 08:25 68 138/82 08/13/18 08:00 97.1 68 20 138/82 (100) 99 08/13/18 03:13 98.5 66 18 130/81 (97) 98 08/12/18 23:10 98.5 69 18 130/82 (98) 99 08/12/18 21:14 121/73 08/12/18 21:00 Room Air 08/12/18 20:00 98.5 68 18 121/73 (89) 98 08/12/18 16:00 98.2 75 18 143/85 (104) 99 Intake and Output 08/12/18 08/13/18 19:00 07:00 Intake Total 700 ml Balance 700 ml Intake Oral 700 ml # Voids 4 2 # Bowel Movements 1 General Appearance: WD/WN HEENT: normocephalic, atraumatic Respiratory/Chest: chest wall non-tender, lungs clear Cardiovascular: normal peripheral pulses, normal rate Abdomen: normal bowel sounds, soft, non tender Neurologic/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: 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 II-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 grossly normal Laboratory Tests 08/13/18 04:50: White Blood Count 4.4L, Red Blood Count 4.50L, Hemoglobin 12.3L, Hematocrit 36.6L, Mean Corpuscular Volume 81, Mean Corpuscular Hemoglobin 27.3, Mean Corpuscular Hemoglobin Concent 33.5, Red Cell Distribution Width 12.6, Platelet Count 105L, Mean Platelet Volume 9.2, Neutrophils (%) (Auto) 56.5, Lymphocytes ( %) (Auto) 28.5, Monocytes (%) (Auto) 11.2H, Eosinophils (%) (Auto) 3.2H, Basophils (%) (Auto) 0.6, Sodium Level 138, Potassium Level 4.3, Chloride Level 106, Carbon Dioxide Level 22, Anion Gap 10, Blood Urea Nitrogen 15, Creatinine 1.3, Estimat Glomerular Filtration Rate 56.7, Glucose Level 95, Calcium Level 8.6 Current Medications Medications (Trade) Dose Ordered Sig/Bria Route PRN Reason Start Time Stop Time Status Last Admin Dose Admin Acetaminophen (Tylenol) 500 mg Q6H PRN ORAL Mild Pain/Temp > 100.5 08/08/18 23:30 09/07/18 23:29 08/10/18 07:24 Amlodipine Besylate (Norvasc) 10 mg DAILY ORAL 08/09/18 09:00 09/08/18 08:59 08/13/18 08:25 Ceftriaxone Sodium 2 gm/ Dextrose 55 ml @ 110 mls/hr DAILY IVPB 08/11/18 14:00 08/18/18 13:59 08/13/18 08:26 EZETIMIBE (Zetia) 10 mg BEDTIME ORAL 08/09/18 21:00 09/08/18 20:59 08/12/18 21:14 Losartan Potassium (Cozaar) 25 mg QHS ORAL 08/08/18 23:30 09/07/18 23:29 08/12/18 21:14 Metronidazole (Flagyl) 500 mg Q8HR ORAL 08/11/18 14:00 08/18/18 13:59 08/13/18 05:56 Mycophenolate Mofetil (Cellcept) 500 mg TWICE A DAY ORAL 08/09/18 09:00 09/08/18 08:59 08/13/18 08:25 Ondansetron HCl (Zofran) 4 mg Q4H PRN IVP Nausea & Vomiting 08/08/18 22:45 09/07/18 22:44 Pantoprazole (Protonix) 40 mg DAILY IVP 08/09/18 09:00 09/08/18 08:59 08/13/18 08:26 Patient Own Medication (Patient's Own Med) 2 ea DAILY ORAL 08/11/18 09:00 09/10/18 08:59 08/13/18 08:25 Phosphorus (Phospha 250 Neutral) 500 mg BID ORAL 08/09/18 09:00 09/08/18 08:59 08/13/18 08:25 Pravastatin Sodium (Pravachol) 40 mg BEDTIME ORAL 08/09/18 21:00 09/08/18 20:59 08/12/18 21:14 Sodium Chloride 1,000 ml @ 100 mls/hr Q10H IV 08/08/18 22:45 09/07/18 22:44 08/13/18 02:38 Tacrolimus (Prograf) 1 mg EVERY 12 HOURS ORAL 08/09/18 09:00 09/08/18 08:59 08/13/18 08:25 Dede Barr MD August 13, 2018 13:38
--- NOTE | 2018-08-13 14:46 | Infectious Diseases Prog Note ---
Assessment/Plan Assessment/Plan ASSESSMENT: The patient is a 57-year-old male with Sepsis, sp Bacteremia, EColi -08/08 Bcx 07/12 E.coli (R amp;otherwise S) rule out Probable cholangitis -MRI abd: Negative MRCP. No evidence of biliary ductal dilatation or stones. No evidence of abscess. Status post cholecystectomy. Status post liver transplant. Atrophic kidneys. Multiple small cysts. Splenomegaly -CT abd/p wo: Evidence of prior liver transplant. Findings as noted. Gas bubbles in the liver. This is presumably on the basis of pneumobilia as a distribution is not characteristic of portal venous gas. Pneumobilia could be related to the prior surgery depending on what kind of biliary anastomosis was performed, but the possibility of cholangitis due to gas-forming organism should also be considered. Bladder wall thickening, could indicate cystitis. Borderline splenomegaly Left iliac fossa transplant kidney. No unusual features. Note cyst in the upper pole. Atrophic [place] kidneys. Equivocal mild esophageal wall thickening, could indicate esophagitis Elev Alk Status post fever Normal WBC Urine culture coag-negative Staph (the patient is asymptomatic). No evidence of pneumonia. ABRAHAM improving ( Base line 1.4) Kidney and liver transplant 15 years ago History of gastrointestinal bleed History of alcohol abuse in the past History of pulmonary hypertension PLAN: Continue the patient on IV Rocephin and Flagyl d# 3 (abx d #) -08/11 SP Meropenem d# 2 Monitor CBC. Monitor BMP. Monitor cultures. Recommend GI consultation Bcx x2 Subjective Allergies: Coded Allergies: No Known Allergies (Unverified , 08/09/18) Subjective afebrile at RA MRCP neg Objective Vital Signs Last 24 Hour Vital Signs Date Time Temp Pulse Resp B/P (MAP) Pulse Ox O2 Delivery O2 Flow Rate FiO2 08/13/18 09:00 Room Air 08/13/18 08:25 68 138/82 08/13/18 08:00 97.1 68 20 138/82 (100) 99 08/13/18 03:13 98.5 66 18 130/81 (97) 98 08/12/18 23:10 98.5 69 18 130/82 (98) 99 08/12/18 21:14 121/73 08/12/18 21:00 Room Air 08/12/18 20:00 98.5 68 18 121/73 (89) 98 08/12/18 16:00 98.2 75 18 143/85 (104) 99 Height (Feet): 5 Height (Inches): 8.00 Weight (Pounds): 195 Objective General Appearance: no acute distress HEENT: normocephalic, atraumatic, anicteric, mucous membranes moist Respiratory/Chest: chest wall non-tender, lungs clear Cardiovascular: normal rate, regular rhythm, no gallop/murmur, no JVD Abdomen: normal bowel sounds, soft, non tender Extremities: no edema, pedal pulses normal Neurologic/Psychiatric: alert, oriented x 3, responsive Musculoskeletal: normal muscle bulk Laboratory Tests Test 08/13/18 04:50 White Blood Count 4.4 K/UL (4.8-10.8) L Red Blood Count 4.50 M/UL (4.70-6.10) L Hemoglobin 12.3 G/DL (14.2-18.0) L Hematocrit 36.6 % (42.0-52.0) L Mean Corpuscular Volume 81 FL (80-99) Mean Corpuscular Hemoglobin 27.3 PG (27.0-31.0) Mean Corpuscular Hemoglobin Concent 33.5 G/DL (32.0-36.0) Red Cell Distribution Width 12.6 % (11.6-14.8) Platelet Count 105 K/UL (150-450) L Mean Platelet Volume 9.2 FL (6.5-10.1) Neutrophils (%) (Auto) 56.5 % (45.0-75.0) Lymphocytes (%) (Auto) 28.5 % (20.0-45.0) Monocytes (%) (Auto) 11.2 % (1.0-10.0) H Eosinophils (%) (Auto) 3.2 % (0.0-3.0) H Basophils (%) (Auto) 0.6 % (0.0-2.0) Sodium Level 138 MMOL/L (136-145) Potassium Level 4.3 MMOL/L (3.5-5.1) Chloride Level 106 MMOL/L (98-107) Carbon Dioxide Level 22 MMOL/L (21-32) Anion Gap 10 mmol/L (5-15) Blood Urea Nitrogen 15 mg/dL (7-18) Creatinine 1.3 MG/DL (0.55-1.30) Estimat Glomerular Filtration Rate 56.7 mL/min (>60) Glucose Level 95 MG/DL (74-106) Calcium Level 8.6 MG/DL (8.5-10.1) Current Medications Medications (Trade) Dose Ordered Sig/Bria Route PRN Reason Start Time Stop Time Status Last Admin Dose Admin Acetaminophen (Tylenol) 500 mg Q6H PRN ORAL Mild Pain/Temp > 100.5 08/08/18 23:30 09/07/18 23:29 08/10/18 07:24 Amlodipine Besylate (Norvasc) 10 mg DAILY ORAL 08/09/18 09:00 09/08/18 08:59 08/13/18 08:25 Ceftriaxone Sodium 2 gm/ Dextrose 55 ml @ 110 mls/hr DAILY IVPB 08/11/18 14:00 08/18/18 13:59 08/13/18 08:26 EZETIMIBE (Zetia) 10 mg BEDTIME ORAL 08/09/18 21:00 09/08/18 20:59 08/12/18 21:14 Losartan Potassium (Cozaar) 25 mg QHS ORAL 08/08/18 23:30 09/07/18 23:29 08/12/18 21:14 Metronidazole (Flagyl) 500 mg Q8HR ORAL 08/11/18 14:00 08/18/18 13:59 08/13/18 05:56 Mycophenolate Mofetil (Cellcept) 500 mg TWICE A DAY ORAL 08/09/18 09:00 09/08/18 08:59 08/13/18 08:25 Ondansetron HCl (Zofran) 4 mg Q4H PRN IVP Nausea & Vomiting 08/08/18 22:45 09/07/18 22:44 Pantoprazole (Protonix) 40 mg DAILY IVP 08/09/18 09:00 09/08/18 08:59 08/13/18 08:26 Patient Own Medication (Patient's Own Med) 2 ea DAILY ORAL 08/11/18 09:00 09/10/18 08:59 08/13/18 08:25 Phosphorus (Phospha 250 Neutral) 500 mg BID ORAL 08/09/18 09:00 09/08/18 08:59 08/13/18 08:25 Pravastatin Sodium (Pravachol) 40 mg BEDTIME ORAL 08/09/18 21:00 09/08/18 20:59 08/12/18 21:14 Sodium Chloride 1,000 ml @ 100 mls/hr Q10H IV 08/08/18 22:45 09/07/18 22:44 08/13/18 14:00 Tacrolimus (Prograf) 1 mg EVERY 12 HOURS ORAL 08/09/18 09:00 09/08/18 08:59 08/13/18 08:25 Fátima Leo M.D. August 13, 2018 14:46
--- NOTE | 2018-08-13 15:40 | NUR ---
NURSE NOTES: Dr. Heath will fax antibiotics prescription to pt's pharmacy. Pharmacy information ([address] [facility] phone [phone], fax [phone]) was given to Dr. Heath.
[2018-08-13] MEDS ORDERED: PRAVASTATIN SOD20 M1 ORAL (15:56)
[2018-08-13] MEDS ORDERED: PHOSPHA 250 NE250 M1 GT (15:56)
[2018-08-13] MEDS ORDERED: PROGRAF1 MG ORAL (15:57)
[2018-08-13] MEDS ORDERED: METRONIDAZOLE500 MG ORAL ×2 (15:58→16:02)
[2018-08-13 16:00] VITALS: BP 139/89
[2018-08-13] MEDS ORDERED: TYLENOL EXTRA500 MG ORAL (16:02)
--- NOTE | 2018-08-13 16:30 | NUR ---
NURSE NOTES: Discharge instruction was given. IV line was removed. Belongings checked with the pt. Patient discharged with his in stable condition. Addendum: 08/13/18 at 1645 by Adriana Bernal RN ADDENDUM Informed pt regarding that Dr. Heath will fax prescription to pt's pharmacy. Patient and verbalized understanding.
--- NOTE | 2018-08-13 17:11 | General Progress Note ---
Assessment/Plan Assessment/Plan: Assessment and Recs: # Thrombocytopenia - potential causes multifactorial, due to cirrhosis and splenomegaly as well, meds reviewed, on antisuppressants, has been admitted before 2012 --> Hep panel and HIV are negative studies --> US abd does not comment on liver, shows transplanted kidney ++ splenomegaly --> Peripheral smear showed no blasts /schistocytes --> abx and other meds have been reviewed --> ok for ppx if plt >50k w/ either heparin or lovenox --> MEDS reviewed # Anemia of chronic disease due to underlying chronic medical issues, multifactorial --> Anemia workup shows ferritin 256 --> No evidence of hemolysis is noted, peripheral smear has been reviewed. --> Hgb goal >7. Transfuse prn. --> Epogen or iron at this time is not particularly indicated --> Medications have been reviewed --> evaluate with Gi team prn --> transfuse if hgb is < 7 (will trend CBC daily) --> low threshold for gi evaluation in case has occult + # History of liver cirrhosis. chronic --> History of renal and liver transplant. --> History of immunosuppressive medications. --> History of splenomegaly # Hypertension. --> sbp goal is <140 --> as per cards # History of pulmonary hypertension. # Renal failure (ARF), acute on chronic # UTI (urinary tract infection) with sepsis --> s/p abx The timing of this note does not necessarily reflect the time of the patient was seen. Greatly appreciate consultation! Subjective Constitutional: Denies: no symptoms, chills, diaphoresis, fever, malaise, weakness, other HEENT: Denies: no symptoms, eye pain, blurred vision, tearing, double vision, ear pain, ear discharge, nose pain, nose congestion, throat pain, throat swelling, mouth pain, mouth swelling, other Cardiovascular: Denies: no symptoms, chest pain, edema, irregular heart rate, lightheadedness, palpitations, syncope, other Respiratory: Denies: no symptoms, cough, orthopnea, shortness of breath, SOB with excertion, SOB at rest, sputum, stridor, wheezing, other Genitourinary: Denies: no symptoms, burning, discharge, frequency, flank pain, hematuria, incontinence, pain, urgency, other Endocrine: Denies: no symptoms, excessive sweating, flushing, intolerance to cold, intolerance to heat, increased hunger, increased thirst, increased urine, unexplained weight gain, unexplained weight loss, other Hematologic/Lymphatic: Denies: no symptoms, anemia, easy bleeding, easy bruising, other Allergies: Coded Allergies: No Known Allergies (Unverified , 08/09/18) Subjective 08/10: sitting up in chair, no fevers or chills noted, no bleeding 08/12: mrcp potentially for monday, no f/c no bleeding 08/13: potential dc soon, as early as today, dc meds script ordered Objective Last 24 Hour Vital Signs Date Time Temp Pulse Resp B/P (MAP) Pulse Ox O2 Delivery O2 Flow Rate FiO2 08/13/18 16:00 98.4 77 22 139/89 (106) 98 08/13/18 12:00 98.1 73 20 129/85 (100) 95 08/13/18 09:00 Room Air 08/13/18 08:25 68 138/82 08/13/18 08:00 97.1 68 20 138/82 (100) 99 08/13/18 03:13 98.5 66 18 130/81 (97) 98 08/12/18 23:10 98.5 69 18 130/82 (98) 99 08/12/18 21:14 121/73 08/12/18 21:00 Room Air 08/12/18 20:00 98.5 68 18 121/73 (89) 98 Intake and Output 08/12/18 08/13/18 19:00 07:00 Intake Total 700 ml Balance 700 ml Intake Oral 700 ml # Voids 4 2 # Bowel Movements 1 Laboratory Tests 08/13/18 04:50: White Blood Count 4.4L, Red Blood Count 4.50L, Hemoglobin 12.3L, Hematocrit 36.6L, Mean Corpuscular Volume 81, Mean Corpuscular Hemoglobin 27.3, Mean Corpuscular Hemoglobin Concent 33.5, Red Cell Distribution Width 12.6, Platelet Count 105L, Mean Platelet Volume 9.2, Neutrophils (%) (Auto) 56.5, Lymphocytes ( %) (Auto) 28.5, Monocytes (%) (Auto) 11.2H, Eosinophils (%) (Auto) 3.2H, Basophils (%) (Auto) 0.6, Sodium Level 138, Potassium Level 4.3, Chloride Level 106, Carbon Dioxide Level 22, Anion Gap 10, Blood Urea Nitrogen 15, Creatinine 1.3, Estimat Glomerular Filtration Rate 56.7, Glucose Level 95, Calcium Level 8.6 Height (Feet): 5 Height (Inches): 8.00 Weight (Pounds): 195 Edson Olvera MD August 13, 2018 17:10
--- NOTE | 2018-08-15 14:33 | Discharge Summary ---
Discharge Summary Discharge Summary _ DATE OF ADMISSION: 08/08/2018 DATE OF DISCHARGE: 08/13/2018 DISCHARGED BY: REASON FOR ADMISSION: 57 years old male with past medical history of kidney and liver transplant, pulmonary hypertension hypertension, hypercholesterolemia, presented with complaint of fever and generalized weakness since earlier that morning. Upon evaluation patient was febrile and tachycardic : fever 102, heart rate 138. He reported nausea and vomiting. He denied cough or sore throat. He denied abdominal pain. He denied chest pain or shortness of breath Upon evaluation laboratory work-up revealed no leukocytosis ,hemoglobin 13.8 , hematocrit 41.3 ,platelets 90. Sodium 130. BUN 21 creatinine 1.8. Lactic acid 2.4. Glucose 143. Troponin negative. EKG revealed sinus tachycardia, no acute ischemic changes. Albumin 3.7 Urinalysis revealed moderate bacteria and pyuria. Chest x-ray demonstrated no acute cardiopulmonary pathology. Abdominal ultrasound demonstrated transplanted kidney in the left iliac fossa. Splenomegaly. Status post cholecystectomy. There was a concern for kidney rejection. Case was discussed with his transplant team at [facility]. Patient was admitted for IV hydration , antibiotic and serial lab work. If creatinine continue to rise , patient will be accepted for transfer. Patient received first dose of empiric antibiotic after being pancultured in emergency department. Patient started on IV fluids. Patient was admitted for further management. [facility] pulmonary Dr. Barr ID specialist Dr. Barbosa educational fundraising director/oncologist Dr. Olvera HOSPITAL COURSE: Patient admitted to medical surgical floor . Patient was continued on empiric antibiotics. ID specialist followed. Blood culture revealed E. coli. Urine culture revealed Staph coag negative. Patient was asymptomatic, no urinary complaints Per ID specialist, patient had sepsis and bacteremia with E. coli. Cholangitis needed to be rule out. CT of the abdomen and pelvis demonstrated evidence of prior liver transplant. Gas bubbles in the liver, presumably on the basis of pneumobilia as a distribution was not characteristic of portal venous gas. Pneumobilia could be related to the prior surgery depending on what kind of biliary anastomosis was performed, but the possibility of cholangitis due to gas-forming organism should also be considered. Bladder wall thickening, could indicate cystitis. Borderline splenomegaly Left iliac fossa transplant kidney. No unusual features. Atrophic hoopa kidneys MRI of the abdomen revealed n o evidence of biliary ductal dilatation or stones. No evidence of abscess. Status post cholecystectomy, status post liver transplant . Atrophic kidneys. Patient was on IV Rocephin and Flagyl and also received 2 days of meropenem. Fevers resolved, no leukocytosis . Patient was discharged home on oral antibiotic to complete the course. Tacrolimus and Sensipar continued. Renal parameters we re closely monitored. Electrolytes further corrected as needed. Nephrotoxins were avoided . Creatinine was trending down. Prior to discharge creatinine from 1.8 down to normal 1.3. Supplemental oxygen titrated to keep pulse oximetry above 92%. Pulmonary toilet provided as needed. Chest x-ray revealed no acute cardiopulmonary pathology, no evidence of pulmonary infection. HIV test was nonreactive. Hepatitis panel was negative. Jacker followed . Patient had anemia of chronic disease due to underlying chronic medical issues , multifactorial. Hemoglobin and hematocrit were closely monitored with goal to keep hemoglobin above 7. Anemia work-up was consistent with anemia of chronic disease. Platelet count was closely monitored. Prior to discharge hemoglobin 12.3, hematocrit 36.6. Epogen or iron at this time were not particularly indicated. No evidence of hemolysis noted. Peripheral smear has been reviewed. Platelet count was closely monitored, prior to discharge 105. GI prophylaxis provided. Blood pressure was managed with calcium channel basim and angiotensin receptor basim. Statin was continued. Supportive care provided. Pain management addressed as needed. Bowel regimen instituted. Patient clinically stabilized was ready for discharge home. FINAL DIAGNOSES: Sepsis with E. coli bacteremia Acute on chronic renal failure History of liver and renal transplant Thrombocytopenia Anemia of chronic disease Pulmonary hypertension Hypertension DISCHARGE MEDICATIONS: See Medication Reconciliation list. DISCHARGE INSTRUCTIONS: Patient was discharged home . Follow up with primary care provider in one week. Follow-up with the transplant team at [facility] within week. Sugar Bates NP August 15, 2018 14:33
== END 2018-08-13 16:30 | disposition home or self-care (01) | DRG 872 ==
LOC: EMR 18:45 → EDBEDREQ 18:47 → 3E 19:09 → EDBEDREQSVC 20:14 → EDBEDREQTM 20:14 → EDBEDREQ 20:51
DX: A41.51 Sepsis due to Escherichia coli [E. coli] (principal); N39.0 Urinary tract infection, site not specified; N17.9 Acute kidney failure, unspecified; Z94.0 Kidney transplant status; Z94.4 Liver transplant status; I27.20 Pulmonary hypertension, unspecified; D69.6 Thrombocytopenia, unspecified; D63.8 Anemia in other chronic diseases classified elsewhere; I12.9 Hypertensive chronic kidney disease with stage 1 through stage 4 chronic kidney disease, or unspecified chronic kidney disease; N18.9 Chronic kidney disease, unspecified; F10.21 Alcohol dependence, in remission
CPT/HCPCS: 36415; 71045; 74176; 74181; 76700; 80048; 80053; 80076; 81001; 81003; 82140; 82248; 82550; 82553; 82607; 82728; 82746; 83540; 83550; 83605; 83615; 83735; 84100; 84439; 84443; 84484; 85007; 85025; 85044; 85060; 85610; 85651; 86140; 86703; 86705; 86709; 86803; 87040; 87086; 87181; 87340; 93005; 96361; 96365; 99285; C9399